=== PATIENT | male | born 1975 | race Hispanic/Latino ===

== ENCOUNTER 2020-06-06 17:36 | Emergency (ER) | payer SELFPAY ==
[2020-06-06 17:37] VITALS: BP 128/76; PULSE 97; PULSE 98; RESP 18; TEMP 35.6; O2SAT 98; BMI 27.8
--- NOTE | 2020-06-06 17:51 | CT_ITS ---
STUDY: CT ABDOMEN AND PELVIS WITHOUT CONTRAST REASON FOR EXAM: Male, 44 years old. RIGHT FLANK PAIN AND HEMATURIA RADIATION DOSAGE (If Supplied By Facility): CTDIvol = ( 8.16 ) mGy, DLP = ( 450.57 ) mGycm TECHNIQUE: Transaxial images were obtained from the dome of the diaphragm to the symphysis pubis without oral contrast, and without intravenous contrast. Sagittal and coronal images were reconstructed. Individualized dose optimization techniques were used for this CT. COMPARISON: None. FINDINGS: The visualized lung bases are unremarkable. The visualized portions of the heart are within normal limits. Normal liver. Normal gallbladder and extrahepatic biliary system. Normal spleen. Normal pancreas. Normal bilateral adrenal glands. Normal right kidney. Left kidney has 3 or 4 very tiny nonobstructing upper and mid renal stones. Otherwise normal left kidney. Normal visualized stomach. Normal small intestine. Normal caliber large bowel. Moderate to marked diffuse fecal retention. Abnormal appearance of the sigmoid where there appears to be thickened bowel wall thickening and numerous diverticuli with probable mild perisigmoid stranding. The finding suggests low level acute diverticulitis. However there may be several slightly prominent perisigmoid enlarged lymph nodes and further evaluation with colonoscopy recommended to exclude more significant etiologies. The appendix is visualized and appears normal. Normal abdominal aorta. Normal inferior vena cava. Normal retroperitoneum. Normal urinary bladder. Normal abdominal wall. Degenerative disc disease at L5-S1, otherwise normal osseous structures. CT/Abdomen/Pelvis without Cont IMPRESSION: Nonobstructing left renal stones. Abnormal appearance of the sigmoid. Probable low-grade acute diverticulitis but cannot exclude more significant etiologies including neoplasm. Colonoscopy recommended. Electronically Signed: Dean Serrano MD at 18:54 EST , Service support ,
--- NOTE | 2020-06-06 17:52 | ED.VIS.GEN ---
History of Present Illness Chief Complaint: Flank Pain Informant: Patient Onset: Weeks - 1 week Context: Gradual Onset Timing: Waxes and wanes Current Severity: Moderate Maximum Severity: Moderate Narrative: Patient presents with 1 week history of waxing and waning flank pain. Right is worse than left. He was seen at urgent care and did have hematuria noted and was sent to the ER for further evaluation. Patient denies any history of kidney stones. - Past Medical History (1) Diverticulitis Status: Resolved Past Medical History - Allergies and Home Meds Allergies/Adverse Reactions: Allergies No Known Allergies Allergy (Verified 06/06/20 17:40) Primary Care Physician: Care Physician,No Primary [Primary Care Provider] - Prior records reviewed: Yes Surgical History: no surgical history Review of Systems General: Denies: Chills, Fever Eyes: Denies: Visual changes - bilaterally ENT: Denies: Bilateral ear pain Cardiovascular: Denies: Chest pain Respiratory: Denies: Dyspnea, Cough Gastrointestinal: Reports: Abdominal pain. Denies: Vomiting, Diarrhea Genitourinary: Denies: Dysuria Musculoskeletal: Reports: Back pain. Denies: Swelling, Extremity Pain Skin: Denies: Rash Neurological: Denies: Headache Hematologic: Denies: Easy bruising, Easy bleeding Allergy: Denies: Uticaria Physical Exam Vital Signs/Narrative: Vital Signs Temp Pulse Resp BP Pulse Ox 06/06/20 17:37 96.0 F L 98 18 128/76 H 98 Inital Vital Signs reviewed: Yes General: Well nourished, Well developed Head: Normocephalic ENT: Moist mucous membranes Neck: Supple Cardiovascular: Regular rate, Regular rhythm Respiratory: No distress, CTA bilaterally Abdomen: Soft, Nontender, Hypoactive bowel sounds Back: CVA tenderness - Right CVA tenderness Skin: Normal color Neurological: Alert, Oriented x3 Psychological: Normal affect Diagnostic/Tx/Re-eval Impressions Abdomen/Pelvis CT 06/06/20 17:51 IMPRESSION: Nonobstructing left renal stones. Abnormal appearance of the sigmoid. Probable low-grade acute diverticulitis but cannot exclude more significant etiologies including neoplasm. Colonoscopy recommended. Electronically Signed: Dean Serrano MD at 18:54 EST , Service support , 06/06/20 17:51 Abdomen/Pelvis without Cont [CT] Stat Laboratory Results 06/06/20 06/06/20 06/06/20 18:00 18:00 19:46 WBC 8.6 RBC 5.23 Hgb 15.6 Hct 48.6 MCV 92.9 MCH 29.8 MCHC 32.1 RDW Std Deviation 44.4 H RDW Coeff of [place]ha 13.1 Plt Count 298 MPV 10.5 Immature Gran % (Auto) 0.300 Neut % (Auto) 60.2 Lymph % (Auto) 27.7 [place] % (Auto) 9.3 Eos % (Auto) 2.2 Baso % (Auto) 0.3 Absolute Neuts (auto) 5.2 Absolute Lymphs (auto) 2.38 Nucleated RBC % 0 Sodium 140 Potassium 4.3 Chloride 108 H Carbon Dioxide 29.0 Anion Gap 3 L BUN 16 Creatinine 1.31 H Estim Creat Clear Calc 78.24 Est GFR (MDRD) Af Amer 77 Est GFR (MDRD) Non-Af 64 BUN/Creatinine Ratio 12.2 Glucose 109 H Calcium 8.7 Urine Color Yellow Urine Clarity Clear Urine pH 6.0 Ur Specific [place] 1.020 Urine Protein Negative Urine Glucose (UA) Normal Urine Ketones Negative Urine Occult Blood 50 H Urine Nitrite Negative Urine Bilirubin Negative Urine Urobilinogen Normal Ur Leukocyte Esterase 25 H Urine RBC 0-5 SEEN Urine WBC 0-5 SEEN Ur Squamous Epith Cells 0 SEEN Urine Bacteria 0 SEEN Urine Mucus 0 SEEN - Medical Decision Making Patient was given morphine, Toradol, Zofran, and IV fluids here. Blood work is largely unremarkable. Urinalysis shows 0-5 reds and 0-5 white cells. No significant bacteria. CT scan of the flank reveals left renal stones. No evidence of stone in the ureter. Sigmoid colon looks mildly inflamed which may be consistent with mild diverticulitis. We will treat him with Augmentin for this. He was advised that he needs to follow-up with a surgeon for possible colonoscopy to ensure that this is completely resolved and there is no abnormalities noted in the bowel. He voices understanding and agreement. Prescription for Augmentin will be sent to the pharmacy for him. ED Disposition - Plan for ED Patient: Disposition: Home or Assisted Living Diagnosis: Diverticulitis Instructions: ED Diverticulitis Prescriptions: Amox/Clavulanate Tablet [Augmentin Tablet] 875 mg PO Q12H #20 tab Transmission Status: Pending to [facility] Referrals: Aristeo Sommers MD [STAFF PHYSICIAN] - 1-2 Weeks
[2020-06-06] MEDS: 0.9% Normal Saline 1,000 ML 1000 ML IV (18:08)
[2020-06-06] MEDS: Ketorolac 30 MG/ML Syringe IV (18:08)
[2020-06-06] MEDS: Ondansetron 4 MG/2 ML Vial IV (18:08)
[2020-06-06] MEDS: Morphine 4 MG/ML Syringe IV (18:08)
[2020-06-06 18:10] LABS: Absolute Lymphocyte Count 2.38 X10^3/uL (0.83-4.51); Absolute Neutrophil Count 5.2 X10^3/uL (2.0-7.7); Basophil# 0.03 X10^3/uL; Basophil% 0.3 % (0-1); Eosinophil# 0.19 X10^3/uL; Eosinophils% 2.2 % (0-5); Hematocrit 48.6 % (40-54); Hemoglobin 15.6 g/dL (13.0-16.5); Lymphocyte # 2.38 X10^3/ul (4.0); Lymphocyte % 27.7 % (19-41); Mean Corp Hgb Conc 32.1 g/dL (32-36); Mean Corpuscular Hgb 29.8 pg (27.0-32.0); Mean Corpuscular Volume 92.9 fL (80-94); Mean Platelet Vol. 10.5 fl (6.2-12.0); Monocyte% 9.3 % (0-10); NRBC Flagged by Analyzer 0 % (0-5); Neutrophil # 5.17 X10^3/uL (2.7-7.7); Neutrophil % 60.2 % (47-70); Platelet Count 298 K/mm3 (150-450); RBC Distribution Width CV 13.1 % (11.6-14.6); RBC Distribution Width SD 44.4 fl (35.1-43.9); Red Blood Count 5.23 M/mm3 (4.6-6.2); White Blood Count 8.6 K/mm3 (4.4-11.0)
[2020-06-06 18:22] LABS: Anion Gap 3 (5-15); BUN 16 mg/dL (7-18); BUN/Creat Ratio 12.2 RATIO (10-20); Calcium,Total 8.7 mg/dL (8.5-10.1); Chloride 108 mmol/L (98-107); Creatinine, Serum 1.31 mg/dL (0.70-1.30); EST Glomerular Filtration Rate 64 mL/min (>60); Est Glom Filt Rate - Afr Amer 77 mL/min (>60); Estimated Creatinine Clearance 78.24 ml/min; Glucose 109 mg/dL (74-106); Potassium 4.3 mmol/L (3.5-5.1); Sodium Level 140 mmol/L (136-145)
[2020-06-06 19:51] LABS: Bacteria 0 SEEN /hpf (None Seen); Mucous, Urine 0 SEEN /hpf (<or=2+); Squamous Epithelial Cells - UA 0 SEEN /hpf (0-5)
[2020-06-06 19:57] LABS: Color, Urine Yellow (Yellow); Glucose, Dipstick Normal (Normal); Ketone-Dipstick Negative (Negative); Leukocyte Esterase-Dipstick 25 /ul (Negative); Nitrite-Dipstick Negative (Negative); Occult Blood-Urine 50 /ul (Negative); Protein-Dipstick Negative (Negative); Urine Bilirubin Dipstick Negative (Negative); Urine Clarity Clear (Clear); Urine Urobilinogen Normal (Normal)
[2020-06-06 20:04] LABS: Red Blood Cells-Urine 0-5 SEEN /hpf (0-5); White Blood Cells 0-5 SEEN /hpf (0-5)
[2020-06-06 21:07] VITALS: BP 141/76; PULSE 91; RESP 16; O2SAT 98
== END 2020-06-06 21:09 | disposition home or self-care (01) ==
PROVIDERS: Emergency Provider Emergency Medicine
DX: K57.92 Diverticulitis of intestine, part unspecified, without perforation or abscess without bleeding (principal); N20.0 Calculus of kidney
CPT/HCPCS: 74176; 80048; 81001; 85025; 96360; 96361; 99283; J7030; A4216; J2405

== ENCOUNTER 2023-04-25 17:01 | Emergency (ER) | payer OTHER, MEDICAID, SELFPAY ==
[2023-04-25 17:02] VITALS: BP 139/110; PULSE 98; RESP 20; TEMP 37.2; O2SAT 99; BMI 30.7
[2023-04-25 17:16] VITALS: BP 136/110; PULSE 99; RESP 21; O2SAT 98; O2SAT 99
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
--- NOTE | 2023-04-25 17:38 | RAD_ITS ---
INDICATION: Injury/Pain EXAMINATION/TECHNIQUE: X-RAY - RIGHT XR Tibia/Fibula 2 Views COMPARISON: None. FINDINGS: No acute fracture or malalignment. RAD/Tibia & Fibula 2 Views IMPRESSION: No acute radiographic abnormalities. Electronically Signed: Augusto Neal MD at 18:39 EST ,
--- NOTE | 2023-04-25 17:38 | CT_ITS ---
STUDY: CT CERVICAL SPINE WITHOUT CONTRAST REASON FOR EXAM: Male, 47 years old. Injury/Pain RADIATION DOSAGE (If Supplied By Facility): CTDIvol = ( 26.91 ) mGy, DLP = ( 586.40 ) mGycm TECHNIQUE: High resolution transaxial imaging was performed without contrast material. Sagittal and coronal images were reconstructed. Individualized dose optimization techniques were used for this CT. COMPARISON: None FINDINGS: Normal craniovertebral junction. Normal anterior atlantoaxial articulation. Normal odontoid process. Normal cervical lordosis. Normal vertebral bodies and posterior osseous elements. C2-3: Normal endplates. Normal disc height and morphology. Normal central canal and intervertebral neuroforamina. C3-4: Normal endplates. Normal disc height and morphology. Normal central canal and intervertebral neuroforamina. C4-5: Normal endplates. Normal disc height and morphology. Normal central canal and intervertebral neuroforamina. C5-6: Normal endplates. Disc space narrowing with broad-based central disc bulge. No central canal narrowing, there is bilateral foraminal narrowing due to facet joint hypertrophy C6-7: Normal endplates. Disc space narrowing. Normal central canal and intervertebral neuroforamina. C7-T1: Normal endplates. Disc space narrowing. Normal central canal and intervertebral neuroforamina. Normal visualized soft tissue structures. CT/Spine Cervical without Contras IMPRESSION: Degenerative changes in the lower cervical spine, no demonstrated fracture or suspicious osseous lesion Electronically Signed: Riaz Hooks MD at 18:14 EST ,
--- NOTE | 2023-04-25 17:38 | RAD_ITS ---
INDICATION: Injury/Pain EXAMINATION/TECHNIQUE: X-RAY - LEFT XR Elbow Min 3 Views COMPARISON: No relevant prior comparison study available FINDINGS: SOFT TISSUES: No soft tissue swelling or gas. No radiopaque foreign body. BONES/JOINTS: There is no displacement of the anterior or posterior fat pads. No acute fracture or subluxation. Normal alignment. Preservation of the joint space. No sclerotic or destructive changes observed. RAD/Elbow min 3 Views IMPRESSION: Negative. Electronically Signed: Augusto Neal MD at 18:40 EST ,
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
--- NOTE | 2023-04-25 17:42 | RAD_ITS ---
INDICATION: Injury/pain EXAMINATION/TECHNIQUE: X-RAY - RIGHT XR Elbow Min 3 Views COMPARISON: No relevant prior comparison study available FINDINGS: SOFT TISSUES: No soft tissue swelling or gas. No radiopaque foreign body. BONES/JOINTS: There is no displacement of the anterior or posterior fat pads. No acute fracture or subluxation. Normal alignment. Preservation of the joint space. No sclerotic or destructive changes observed. RAD/Elbow min 3 Views IMPRESSION: Negative. Electronically Signed: Augusto Neal MD at 18:39 EST ,
[2023-04-25] MEDS: Ondansetron 4 MG/2 ML Vial IV (17:47)
[2023-04-25] MEDS: Morphine 4 MG/ML Syringe IV (17:47)
--- OUTSIDE RECORDS SUMMARY | 2023-04-25 17:57 | XMS RPT_ITS | CCD ---
Author Name Unknown Address [address] [place] [address] Organization [facility] Care Team Providers Care Business Support Specialist Name Role Phone Unavailable Primary Care Provider Unavailangelito Leon MD, Enrique Alcala Unavailable PHYSICIAN, NONE Primary Care Physician Unavailab JENNIFER Celeste DO Primary Care Physician PHYSICIAN, NONE Primary Care Unavailable SHAUN ALDRIDGE, DR BJ Yan Admitting SARANYA Ly DO Attending Unavailable JENN ALDRIDGE, YU Alcala Consulting Unavailable LISA ALDRIDGE, GIO Consulting Unavailable HARDEEP ALFARO MD Consulting Unavailable CARMEN ALDRIDGE, DR HSIEH Consulting Unavailable SHAHBAZ ALDRIDGE, REJI Consulting Unavailakbar MCKEON MD, LIDIA Salter Consulting Unavailable IRVIN VALLE DO Attending Unavailable JENNIFER ANTONY DO Primary Care Unavailable PHYSICIAN, NONE Primary Care Unavailable KANCHAN SAWYER MD Attending Unavail able ED MG, DR SUSU Rueda Attending Unavailable JENNIFER ANTONY DO Primary Care Unavailable JENNIFER ANTONY DO Attending Unavailable JENNIFER ANTONY DO Primary Care Unavailable JENNIFER ANTONY DO Attending Unavailable JENNIFER ANTONY DO Primary Care Unavailable KANCHAN SAWYER MD Attending Unavail able JENNIFER ANTONY DO Primary Care Unavailable CARMEN ALDRIDGE, DR HSIEH Attending Unavailable PHYSICIAN, NONE Primary Care Unavailable JENNIFER ANTONY DO Attending Unavailable JENNIFER ANTONY DO Primary Care Unavailable Medications Current Medications Medication Drug Class(es) Dates Sig (Normalized) Sig (Original) 8 hr acetaminophen 650 mg extended release oral tablet (4 sources) Start: 11-11-2022 Tylenol 8 Hour 650 mg oral tablet, extended release Dose : 650 mg = 1 tab(s), Oral, TID, Generic acetaminophen 500-650mg dosing are fine to use. Do not take with alcohol within 24 hour period., # 100 tab(s), 0 Refill(s), Pharmacy: [id number], Costochondritis Current use of intermediate frame tender Eliquis, DVT prophylaxis, 180, cm, 11/11/22 17:35:00 EDT, Height, kg, 11/11/22 17:35:00 EDT, Dosing Weight Start Date: 11/11/22 Status: Ordered Completed/Discontinued Medications Medication Drug Class(es) Dates Sig (Normalized) Sig (Original) escitalopram 20 mg oral tablet (2 sources) Serotonin Reuptake Inhibitor take 1 tablet by mouth at bedtime LEXAPRO 20 MG TABS 1 tablet by mouth at bedtime escitalopram oxalate [id number] Flor Pavick AT predniSONE 10 mg oral tablet (2 sources) Start: 11-11-2022 End: 11-25-2022 take 0.5 tablet by mouth once daily prednisone 10mg tab (TAPER) Taper 60-40-20-10 mg x 3 days then 5mg x 2 days, Oral, Daily, Take 6 tabs daily x 3days, then 4 tabs daily x 3days, then 2 tabs daily x 3days,then 1 tab daily x 3days,then 1/2 tab daily x 2 days, # 40 tab(s), 0 Refill(s), Pharmacy: [facility] #[id number], Costochondritis Current use of intermediate frame tender Eliquis, DVT prophylaxis, 180, cm, 11/11/22 17:35:00 EDT, Height, kg, 11/11/22 17:35:00 EDT, Dosing Weight Start Date: 11/11/22 Stop Date: 11/25/22 Status: Ordered Problems Active Problems Problem Classification Problem Date Documented Da te Episodic/Chronic Abdominal pain (1 source) Flank pain; Translations: [Flank pain, acute] Episodic Cardiac dysrhythmias (3 sources) Tachycardia 09-02-2022 Episodic Deficiency and other anemia (1 source) Anemia; Translations: [Anemia, unspecified] Onset: 03-22-2022 Episodic Deficiency and other anemia (2 sources) Microcytic anemia 12-25-2022 Episodic Fracture of neck of femur (hip) (2 sources) Open fracture proximal femur, subtrochanteric; Translations: [Displaced subtrochanteric fracture of right femur, subsequent encounter for open fracture type IIIA, IIIB, or IIIC with routine healing] Onset: 05-11-2021 05-11-2021 Episodic Genitourinary symptoms and ill-defined conditions (2 sources) Increased frequency of urination; Translations: [Amarjit hematuria] Episodic Nonspecific chest pain (5 sources) Chest discomfort; Translations: [Chest pain] Onset: 11-08-2022 05-31-2022 Episodic Nutritional deficiencies (1 source) Iron deficiency; Translations: [Iron deficiency] Onset: 03-22-2022 Episodic Other aftercare (3 sources) Long-term current use of anticoagulant 05-31-2022 Episodic Other bone disease and musculoskeletal deformities (2 sources) Costal chondritis 11-13-2022 Episodic Other bone disease and musculoskeletal deformities (1 source) Tietze's disease; Translations: [Chondrocostal junction syndrome [Tietze]] Onset: 02-21-2023 Episodic Other connective tissue disease (2 sources) Lateral epicondylitis 12-25-2022 Episodic Other lower respiratory disease (1 source) Dyspnea; Translations: [Dyspnea, unspecified] Onset: 11-08-2022 Episodic Other lower respiratory disease (3 sources) Snoring 10-07-2022 Episodic Other nervous system disorders (4 sources) Paresthesia of upper limb 05-31-2022 Episodic Other nervous system disorders (3 sources) Paresthesia 09-02-2022 Episodic Phlebitis; thrombophlebitis and thromboembolism (8 sources) Deep venous thrombosis; Translations: [Acute embolism and thrombosis of unspecified deep veins of unspecified lower extremity] Onset: 03-22-2022 Episodic Pleurisy; pneumothorax; pulmonary collapse (5 sources) Pleural effusion 04-13-2022 Episodic Pulmonary heart disease (6 sources) Other pulmonary embolism without acute cor pulmonale; Translations: [H/O: pulmonary embolus] Onset: 03-22-2022 Episodic Residual codes; unclassified (3 sources) Hypersomnia 10-07-2022 Chronic Residual codes; unclassified (3 sources) Clubbing of nail 10-07-2022 Episodic Screening and history of mental health and substance abuse codes (3 sources) Ex-tobacco user 09-02-2022 Episodic Syncope (3 sources) Near syncope 09-02-2022 Episodic Thyroid disorders (3 sources) Non-toxic uninodular goiter; Translations: [Nontoxic single thyroid nodule] Onset: 11-08-2022 Chronic Unclassified (1 source) Patient encounter status 04-13-2022 Past or Other Problems Problem Classification Problem Date Documented Da te Episodic/Chronic Unclassified (2 sources) Problem Results Test Name Value Interpretation Reference Range Facil ity Vital Signs Date Time Vital Sign Value Performing Clinician Facility 02-21-2023 18:45-0500 Diastolic Blood Pressure Non-Invasive 85 1 IRVIN [email or web address] DO [facility] 02-21-2023 18:45-0500 Heart rate 71 /min IRVIN EspressiT kooaba [facility] 02-21-2023 18:45-0500 Respiratory rate 21 /min IRVIN EspressiT kooaba [facility] 02-21-2023 18:45-0500 Systolic Blood Pressure Non-Invasive 135 1 IRVIN [email or web address] DO [facility] 02-21-2023 18:18-0500 Diastolic Blood Pressure Non-Invasive 85 1 IRVIN EspressiT kooaba [facility] 02-21-2023 18:18-0500 Heart rate 70 /min IRVIN EspressiT DO [facility] 02-21-2023 18:18-0500 Systolic Blood Pressure Non-Invasive 119 1 IRVIN [email or web address] DO [facility] 02-21-2023 17:26-0500 Diastolic Blood Pressure Non-Invasive 91 1 IRVIN EspressiT DO [facility] 02-21-2023 17:26-0500 Heart rate 80 /min IRVIN EspressiT kooaba [facility] 02-21-2023 17:26-0500 Respiratory rate 19 /min IRVIN EspressiT kooaba [facility] 02-21-2023 17:26-0500 Systolic Blood Pressure Non-Invasive 125 1 IRVIN VALLE DO [facility] 02-21-2023 16:10-0500 Respiratory rate 19 /min IRVIN VALLE DO [facility] 02-21-2023 15:34-0500 Body temperature 98.6 [degF] IRVIN VALLE DO [facility] 02-21-2023 15:34-0500 Body weight 93.7 kg IRVIN VALLE DO [facility] 11-08-2022 03:33-0400 Diastolic Blood Pressure Non-Invasive 68 1 KANCHAN SAWYER MD [facility] 11-08-2022 03:33-0400 Heart rate 72 /min KANCHAN SAWYER MD [facility] 11-08-2022 03:33-0400 Respiratory rate 18 /min KANCHAN SAWYER MD [facility] 11-08-2022 03:33-0400 Systolic Blood Pressure Non-Invasive 132 1 KANCHAN SAWYER MD [facility] 11-08-2022 01:50-0400 Diastolic Blood Pressure Non-Invasive 85 1 KANCHAN SAWYER MD [facility] 11-08-2022 01:50-0400 Heart rate 86 /min KANCHAN SAWYER MD [facility] 11-08-2022 01:50-0400 Respiratory rate 18 /min KANCHAN SAWYER MD [facility] 11-08-2022 01:50-0400 Systolic Blood Pressure Non-Invasive 129 1 KANCHAN SAWYER MD [facility] 05-31-2022 17:06-0500 Diastolic Blood Pressure Non-Invasive [address] SUSU WARD DO [facility] 05-31-2022 17:06-0500 Heart rate 99 /min DR SUSU WARD DO [facility] 05-31-2022 17:06-0500 Respiratory rate 18 /min DR SUSU WARD DO [facility] 05-31-2022 17:06-0500 Systolic Blood Pressure Non-Invasive [address] SUSU AWRD DO [facility] 05-31-2022 14:24-0500 Body temperature 97.7 [degF] DR SUSU WARD DO [facility] 05-31-2022 14:24-0500 Body weight 90.[address] SUSU WARD DO [facility] 05-31-2022 14:24-0500 Diastolic Blood Pressure Non-Invasive [address] SUSU WARD DO [facility] 05-31-2022 14:24-0500 Heart rate 101 /min DR SUSU WARD DO [facility] 05-31-2022 14:24-0500 Respiratory rate 18 /min DR SUSU WARD DO [facility] 05-31-2022 14:24-0500 Systolic Blood Pressure Non-Invasive [address] SUSU WARD DO [facility] 04-04-2022 13:19-0500 Body height 180.3 cm KANCHAN SAWYER MD [facility] 04-04-2022 13:19-0500 Body temperature 98.06 [degF] KANCHAN SAWYER MD [facility] 04-04-2022 13:19-0500 Body weight 90.9 kg KANCHAN SAWYER MD [facility] 04-04-2022 13:19-0500 Diastolic Blood Pressure Non-Invasive 87 1 KANCHAN SAWYER MD [facility] 04-04-2022 13:19-0500 Heart rate 108 /min KANCHAN SAWYER MD [facility] 04-04-2022 13:19-0500 Respiratory rate 24 /min KANCHAN SAWYER MD [facility] 04-04-2022 13:19-0500 Systolic Blood Pressure Non-Invasive 136 1 KANCHAN SAWYER MD [facility] 03-22-2022 21:32-0500 Heart rate 97 /min DR BJ DUNN MD [facility] 03-22-2022 20:43-0500 Body temperature 98.6 [degF] DR BJ DUNN MD [facility] 03-22-2022 20:43-0500 Diastolic Blood Pressure Non-Invasive [address] BJ DUNN MD [facility] 03-22-2022 20:43-0500 Heart rate 97 /min DR BJ DUNN MD [facility] 03-22-2022 20:43-0500 Mean blood pressure 93 mm[Hg] DR BJ DUNN MD [address] [place] [address] 03-22-2022 20:43-0500 Reason For Taking VItal Signs DR BJ DUNN MD [address] [place] [address] 03-22-2022 20:43-0500 Respiratory rate 18 /min DR BJ DUNN MD [address] [place] [address] 03-22-2022 20:43-0500 Systolic Blood Pressure Non-Invasive [address] BJ DUNN MD [address] [place] [address] 03-22-2022 15:40-0500 Body temperature 99.14 [degF] DR BJ DUNN MD [address] [place] [address] 03-22-2022 15:40-0500 Diastolic Blood Pressure Non-Invasive [address] BJ DUNN MD [address] [place] [address] 03-22-2022 15:40-0500 Heart rate 97 /min DR BJ DUNN MD [address] 03-22-2022 15:40-0500 Mean blood pressure 95 mm[Hg] DR BJ DUNN MD [address] 03-22-2022 15:40-0500 Reason For Taking VItal Signs DR BJ DUNN MD [address] [place] [address] 03-22-2022 15:40-0500 Respiratory rate 18 /min DR BJ DUNN MD [address] [place] [address] 03-22-2022 15:40-0500 Systolic Blood Pressure Non-Invasive [address] BJ DUNN MD [address] [place] [address] 03-22-2022 15:35-0500 Reason For Taking VItal Signs DR BJ DUNN MD [address] [place] [address] 03-22-2022 14:00-0500 Body temperature 99.32 [degF] DR BJ DUNN MD [address] [place] [address] 03-22-2022 14:00-0500 Diastolic Blood Pressure Non-Invasive [address] BJ DUNN MD [address] [place] [address] 03-22-2022 14:00-0500 Mean blood pressure 98 mm[Hg] DR BJ DUNN MD [address] [place] [address] 03-21-2022 12:47-[address] BJ DUNN MD [address] [place] [address] 03-21-2022 12:47-[address] BJ DUNN MD [address] [place] [address] 03-21-2022 07:56-05[address] Cuff Size DR BJ DUNN MD [address] [place] [address] 03-20-2022 23:34-0500 Heart rate 98 /min DR BJ DUNN MD [address] [place] [address] 03-20-2022 20:12-0500 Heart rate 98 /min DR BJ DUNN MD [address] [place] [address] 03-20-2022 16:14-0500 Heart rate 100 /min DR BJ DUNN MD [address] [place] [address] 03-19-2022 21:37-0500 Body height 175.[address] BJ DUNN MD [address] [place] [address] 03-19-2022 21:37-0500 Body weight 91.[address] BJ DUNN MD [address] [place] [address] 03-19-2022 21:37-0500 Body weight 29.78 kg/m2 DR BJ DUNN MD [address] [place] [address] 03-19-2022 10:01-0500 Heart rate 130 /min DR BJ DUNN MD [facility] 03-19-2022 09:41-0500 Body weight 91.[address] BJ DUNN MD [facility] 03-19-2022 09:41-0500 Heart rate 130 /min DR BJ DUNN MD [facility] 06-06-2020 16:21-0500 Body Temperature 97.39 [degF] [facility] 06-06-2020 16:21-0500 Body weight 91.08 kg [facility] 06-06-2020 16:21-0500 BP Diastolic 72 mm[Hg] [facility] 06-06-2020 16:21-0500 BP Systolic 110 mm[Hg] [facility] 06-06-2020 16:21-0500 Pulse (Heart Rate) 94 /min [facility] 06-06-2020 16:21-0500 Pulse Oximetry 97 % [facility] 06-06-2020 16:21-0500 Respiratory Rate 18 /min [facility] NEGATED: Highlighted [id number] 13:13-0400 Body height 179.07 cm Flor Pavick AT [facility] Work Phone: NEGATED: Highlighted [id number] 13:13-0400 Body height 179 cm Flor Pavick AT [facility] Work Phone: NEGATED: Highlighted [id number] 13:13-0400 Body mass index (BMI) [Ratio] 28.11 kg/m2 Flor Pavick AT [facility] Work Phone: NEGATED: Highlighted [id number] 13:13-040 Body weight 89.81 kg Flor Pavick AT [facility] Work Phone: NEGATED: Highlighted [id number] 13:13-040 Body weight 90 kg Flor Pavick AT [facility] Work Phone: NEGATED: Highlighted [id number] 13:56-0500 Body height 179.07 cm Karla Garcia LPN [facility] Work Phone: NEGATED: Highlighted [id number] 13:56-0500 Body height 179 cm Karla Garcia LPN [facility] Work Phone: NEGATED: Highlighted [id number] 13:56-0500 Body mass index (BMI) [Ratio] 28.68 kg/m2 Karla Garcia LPN [facility] Work Phone: NEGATED: Highlighted [id number] 13:56-0500 Body temperature 97.8 [degF] Karla Garcia LPN [facility] Work Phone: NEGATED: Highlighted [id number] 13:56-0500 Body temperature 97.88 [degF] Karla Garcia LPN [facility] Work Phone: NEGATED: Highlighted [id number] 13:56-0500 Body weight 91.63 kg Karla Garcia LPN [facility] Work Phone: NEGATED: Highlighted [id number] 13:56-0500 Body weight 92 kg Karla Garcia LPN [facility] Work Phone: Encounters Encounter Date Encounter Type Care Provider Facility Start: 02-21-2023 End: 02-21-2023 Emergency department patient visit IRVIN VALLE DO Facility:B Start: 02-21-2023 End: 02-21-2023 Emergency department patient visit IRVIN VALLE DO [facility] Start: 12-25-2022 End: 12-26-2022 ambulatory JENNIFER ANTONY DO Facility:[facility] Start: 12-25-2022 End: 12-25-2022 Patient encounter procedure JENNIFER ANTONY DO [facility] Start: 12-02-2022 End: 12-03-2022 ambulatory JENNIFER ANTONY DO Facility:A Start: 11-14-2022 End: 11-15-2022 ambulatory JENNIFER ANTONY DO Facility:[facility] Start: 11-08-2022 End: 11-08-2022 Emergency department patient visit KANCHAN SAWYER MD Facility:[facility] Start: 11-08-2022 End: 11-08-2022 Emergency department patient visit KANCHAN SAWYER MD [facility] Start: 05-31-2022 End: 05-31-2022 Emergency department patient visit DR SUSU WARD DO Facility:B Start: 05-31-2022 End: 05-31-2022 Emergency department patient visit DR SUSU WARD DO [facility] Start: 05-13-2022 End: 05-14-[address] МАРИЯ MARINELLI MD Facility:A Start: 05-13-2022 End: 05-13-[address] МАРИЯ MARINELLI MD [facility] Start: 04-04-2022 End: 04-04-2022 Emergency department patient visit NONE PHYSICIAN Facility:B Start: 04-04-2022 End: 04-04-2022 Emergency department patient visit KANCHAN SAWYER MD [facility] Start: 03-19-2022 End: 03-23-2022 Evaluation and management of inpatient NONE PHYSICIAN Facility:A Start: 03-19-2022 End: 03-22-2022 Evaluation and management of inpatient DR BJ DUNN MD [facility] Start: 06-06-2020 End: 06-06-2020 Patient encounter procedure Enrique CharlesRahJuliann Work Phone: [facility] Procedures Date Procedure Procedure Detail Performing Clinician Start: 07-20-2021 End: 07-20-2021 BP scrn no perf at interval Enrique Leon MD Work Phone: Start: 07-20-2021 End: 07-20-2021 Calc BMI abv up cindy f/u Enrique Leon MD Work Phone: Start: 07-20-2021 End: 07-20-2021 Current tobacco non-user cad cap copd pv dm Enrique Leon MD Work Phone: Start: 07-20-2021 End: 07-20-2021 Docrev cur meds by lillian Leon MD Work Phone: Start: 07-20-2021 End: 07-20-2021 Pain neg no plan Enrique Leon MD Work Phone: Start: 07-20-2021 End: 07-20-2021 Patient encounter procedure Enrique Leon MD Work Phone: Start: 07-20-2021 End: 07-20-2021 Radiologic examination femur minimum 2 views Enrique Leon MD Work Phone: Start: 06-08-2021 End: 06-08-2021 BP scrn no perf at interval Enrique Leon MD Work Phone: Start: 06-08-2021 End: 06-08-2021 Calc BMI abv up cindy f/u Enrique Leon MD Work Phone: Start: 06-08-2021 End: 06-08-2021 Current tobacco non-user cad cap copd pv dm Enrique Leon MD Work Phone: Start: 06-08-2021 End: 06-08-2021 Docrev cur meds by lillian Leon MD Work Phone: Start: 06-08-2021 End: 06-08-2021 Pain doc pos and plan Enrique Leon MD Work Phone: Start: 06-08-2021 End: 06-08-2021 Patient encounter procedure Enrique Leon MD Work Phone: Start: 06-08-2021 End: 06-08-2021 Radiologic examination femur minimum 2 views Enrique Leon MD Work Phone: Start: 06-06-2020 Urnls dip stick/tabl et rgnt auto w/o microscopy [facility]: Fracture of lower li mb (disorder) DR BJ DUNN MD None (qualifier value) DR AMANDEEP DUNN MD NEGATED: Highlighted rowStart: 07-20-2021 End: 07-20-2021 Documentation of current medications Flor Eli AT NEGATED: Highlighted rowStart: 06-08-2021 End: 06-08-2021 Documentation of current medications Karla Garcia LPN Plan of Treatment Date Care Activity Detail Author Start: 07-20-2021 End: 07-20-2021 Patient encounter procedure Appointment [facility] Work Phone: Start: 06-08-2021 End: 06-08-2021 Patient encounter procedure Appointment [facility] Work Phone: Start: 12-14-2019 Influenza vaccination INFLUENZA (#1) [facility] Start: 2012 LIPID SCREEN LIPID SCREEN [facility] Start: 1996 Urine microalbumin profile DTAP,TDAP,TD (1 - Tdap) [facility] Start: 08-09-1995 HEPATITIS C SCREENING HEPATITIS C SCREENING [facility] Start: 08-09-1995 HIV SCREENING HIV SCREENING [facility] Start: 1989 Adult depression screening assessment DEPRESSION SCREENING [facility] Bacteria identified Cx Nom (U) URINE CULTURE Microbiology Routine Urinary frequency Ordered: 06/06/2020 [facility] Immunizations Immunization Date Immunization Notes Care Provider Iman dawn 05-25-2018 tetanus toxoid, redu kaia diphtheria toxoid, and acellular pertussis vaccine, adsorbed; Translations: [Boostrix (Tdap)] DR BJ DUNN MD [facility] Payers Date Payer Category Payer Private Health Insurance [id number] 2022 Unknown [id number] 2022 Unknown [id number] 1977 Unknown [id number] 2.16.8 [id number] 1977 Unknown [id number] 2.16.8 [id number] 1977 Unknown [id number] 2.16.8 [id number] 1977 Unknown [id number] 2.16.8 [id number] 1977 Unknown [id number] 2.16.8 [id number] 1977 Unknown [id number] 2.16.8 [id number] 1977 Unknown [id number] 2.16.8 [id number] 1977 Unknown [id number] 2.16.8 [id number] 1977 Unknown [id number] 2.16.8 [id number] Social History Date Type Detail Facility Start: 06-06-2020 Tobacco smoking status NHIS Current every day smoker [facility] Start: 06-06-2020 Tobacco use and exposure Never used [facility] Start: 1975 [facility] to SARS-CoV-2 (event) Not sure [facility] Start: 07-20-2021 End: 07-20-2021 Assertion Unknown if ever smoked [facility] Work Phone: Start: 04-22-2018 Tobacco smoking status Light tobacco smoker (finding) [facility] Sex Assigned At Sex [facility] Start: 05-31-2022 Tobacco smoking status Ex-smoker (finding) [facility] NEGATED: Highlighted rowStart: 06-08-2021 End: 06-08-2021 Assertion Former smoker [facility] Work Phone: NEGATED: Highlighted rowStart: 07-20-2021 End: 07-20-2021 Employment detail Employment detail [facility] Work Phone: Functional Status Date Assessment Result Facility 02-21-2023 Functional Status Independent [facility] 02-21-2023 Functional Status Ambulation in [facility] 11-08-2022 Functional Status Assistive Device None [facility] 05-31-2022 Functional Status Independent [facility] 05-31-2022 Functional Status ID band on, Call device within reach, Bed in low position, Wheels locked, Upper/Half-Length side-rails up [facility] 04-04-2022 Functional Status Independent [facility] 04-04-2022 Functional Status Resting [facility] 03-22-2022 Functional Status Room check performed [facility] 03-22-2022 Functional Status 100 [facility] 03-22-2022 Functional Status [facility] 03-21-2022 Functional Status Lunch Percent [address] 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 [facility] 03-19-2022 Functional Status Steady without support [facility] Mental Status Date Assessment Result Facility 02-21-2023 Mental Status Orientation Oriented x 4 [facility] 02-21-2023 Mental Status [facility] 11-08-2022 Mental Status Orientation Oriented x 4 [facility] 05-31-2022 Mental Status Orientation Oriented x 4 [facility] 05-31-2022 Mental Status [facility] 04-04-2022 Mental Status Orientation Oriented x 4 [facility] 03-22-2022 Mental Status Oriented x 4 [facility] 03-22-2022 Mental Status [facility] Clinical Notes 05-08-2021 to 02-21-2023 Note Date & Type Note Facility 02-21-2023 Hospital Discharge instructions Patient Education 02/21/2023 18:38:23 Costochondritis Costochondritis Costochondritis is inflammation of a rib or the cartilage that connects a rib to your breastbone (sternum). It causes tenderness, and sometimes chest pain may be sharp or aching, or it may feel like pressure. Pain may get worse with deep breathing, movement, or exercise. In some cases, the pain is mistaken for a heart attack. Despite this, the condition is not serious. Read on to learn more about the condition and how it can be treated. What causes costochondritis? The cause of costochondritis is not completely clear, but it may happen after a chest injury, chest infection, or coughing episode. Some physical activities can sometimes lead to costochondritis. Large-breasted women may be more likely to have the condition. Often, the reason for the inflammation is unknown. Diagnosing costochondritis There is no test for costochondritis. The condition is diagnosed by the symptoms you have. Your healthcare provider will perform a physical exam. He or she will ask you about your symptoms and examine your chest for tenderness. In some cases, tests are done to rule out more serious problems. These tests may include imaging tests such as chest X-ray, CT scan, or an ECG. Treating costochondritis If an underlying cause is found, treatment for that will likely relieve the problem. Costochondritis often goes away on its own. The course of the condition varies from person to person. It usually lasts from weeks to months. In some cases, mild symptoms continue for months to years. To ease symptoms: Take medicine as directed. These relieve pain and swelling. Ibuprofen or other NSAIDs are often recommended. In some cases, you may be given prescription medicine, such as muscle relaxants. Avoid activities that put stress on the chest or spine. Apply a heating pad (set to warm, not too high, heat) to the breastbone several times a day. Perform stretching exercises as directed. Call the healthcare provider right away if you have any of the following: Pain that is not relieved by medicine Shortness of breath Lightheadedness, dizziness, or fainting Feeling of irregular heartbeat or fast pulse Anyone with chest pain should see a healthcare provider, especially those who are older and may be at risk for heart disease. [id number] [employer]. [address] [place] [address]. All rights reserved. This information is not intended as a substitute for professional medical care. Always follow your healthcare professional's instructions. Follow Up Care 02/21/2023 15:20:12 With:JENNIFER ANTONY DO Address: [address] [place] [phone] When:2-4 days [facility] 02-21-2023 Note Discharge Instructions Thank you for allowing [facility] to assist you with your healthcare needs. The following is important discharge information regarding your hospital visit. Diagnosis from Today's Visit Chest pain Costochondritis What to Do Next Instructions from Your Care Team No qualifying data available. Post Acute Orders No qualifying data available. You Need to Schedule the Following Appointments Follow Up with JENNIFER ANTONY DO When Within 2-4 days Where: [address] [place] [phone] Allergies NKA Medications Please ask your primary doctor or pharmacist before taking any other medication not listed, including over the counter drugs, herbal medications, vitamins and or supplements as they may interact with your home medications. What How Much When Why Instructions Last Dose New acetaminophen-hydrocodone ([place] 325- 5 mg oral tablet) 1 tab(s) by mouth Every 6 hours as needed for as needed for pain Costochondritis Duration: 3 Days Printed Prescription Unchanged acetaminophen (Tylenol 8 Hour 650 mg oral tablet, extended release) 1 tab(s) by mouth Three (3) times a day Costochondritis Current use of intermediate frame tender Eliquis, DVT prophylaxis Generic acetaminophen 500-650mg dosing are fine to use. Do not take with alcohol within 24 hour period. Unchanged apixaban (Eliquis 5 mg oral tablet) 1 tab(s) by mouth Two (2) times a day Unchanged cholecalciferol (Vitamin D3 50 mcg (2000 intl units) oral capsule) 1 cap by mouth Every day Hypersomnia Unchanged DME (DME MISCellaneous) See instructions PE (pulmonary thromboembolism) 3 pairs. Compression stockings. 20 to 30 mmHg. Mid thigh. Per insurance coverage. Unchanged omeprazole (omeprazole 20 mg oral delayed release capsule) 1 cap by mouth Once a day Costochondritis Current use of senior care Eliquis, DVT prophylaxis Stomach prophylaxis on steroid taper with DOAC therapy Unchanged predniSONE (prednisone 10mg tab (TAPER)) Taper 60-40-20-10 mg x 3 days then 5mg x 2 days by mouth Every day Costochondritis Current use of intermediate frame tender Eliquis, DVT prophylaxis Duration: 14 Days Take 6 tabs daily x 3days, then 4 tabs daily x 3days, then 2 tabs daily x 3days,then 1 tab daily x 3days,then 1/ 2 tab daily x 2 days Please take this list to your next doctor s visit. Bring all medications you take, including over the counter medications, herbals and other supplements with you to your doctor s visit. Patients and families are reminded to discard old lists and to update any records with all medication providers or retail pharmacies. Education Materials Costochondritis Costochondritis is inflammation of a rib or the cartilage that connects a rib to your breastbone (sternum). It causes tenderness, and sometimes chest pain may be sharp or aching, or it may feel like pressure. Pain may get worse with deep breathing, movement, or exercise. In some cases, the pain is mistaken for a heart attack. Despite this, the condition is not serious. Read on to learn more about the condition and how it can be treated. What causes costochondritis? The cause of costochondritis is not completely clear, but it may happen after a chest injury, chest infection, or coughing episode. Some physical activities can sometimes lead to costochondritis. Large-breasted women may be more likely to have the condition. Often, the reason for the inflammation is unknown. Diagnosing costochondritis There is no test for costochondritis. The condition is diagnosed by the symptoms you have. Your healthcare provider will perform a physical exam. He or she will ask you about your symptoms and examine your chest for tenderness. In some cases, tests are done to rule out more serious problems. These tests may include imaging tests such as chest X-ray, CT scan, or an ECG. Treating costochondritis If an underlying cause is found, treatment for that will likely relieve the problem. Costochondritis often goes away on its own. The course of the condition varies from person to person. It usually lasts from weeks to months. In some cases, mild symptoms continue for months to years. To ease symptoms: Take medicine as directed. These relieve pain and swelling. Ibuprofen or other NSAIDs are often recommended. In some cases, you may be given prescription medicine, such as muscle relaxants. Avoid activities that put stress on the chest or spine. Apply a heating pad (set to warm, not too high, heat) to the breastbone several times a day. Perform stretching exercises as directed. Call the healthcare provider right away if you have any of the following: Pain that is not relieved by medicine Shortness of breath Lightheadedness, dizziness, or fainting Feeling of irregular heartbeat or fast pulse Anyone with chest pain should see a healthcare provider, especially those who are older and may be at risk for heart disease. [id number] [employer]. [address] [place] [address]. All rights reserved. This information is not intended as a substitute for professional medical care. Always follow your healthcare professional's instructions. Additional Information VACCINATE! IT SAVES LIVES! Members of the community who have not yet received the COVID-19 vaccine and would like to receive it can visit one of [facility] vaccine clinics. There are many vaccine clinic locations within the [facility]. For locations and available times, please visit [email or web address] It is important to note that some COVID mobile vaccine clinics are held outdoors and may be canceled in rainy or stormy conditions. To learn more about pediatric vaccinations (ages 5-11), we invite you to visit the [facility] webpage. https://www.[email or web address].org/pag es/3010-Lpfct-Gdrarjdehdv-Frequent zz-Kxvnh-Bvownxavl.html To learn more about the COVID-19 vaccine, we invite you to visit the CDC website for a list of frequently asked questions. https://www.cdc.gov/coronavirus/-ncov/vaccines/faq.html [facility] Patient Portal Access Instructions: Stay connected with your healthcare team and access your personal medical information anytime with the [facility] Patient Portal. If you would like a full copy of your medical records please contact the [facility] Medical Records Department Friday through Friday between 8a.m. and 4:30p.m. Please follow the directions below to access the portal: 1.Access the email account you provided upon registration to the [facility].2.Look for an invitation email from [facility].3.Open the email and access the invitation link: Accept Invitation to [facility]4.Fill in the required barnes to create your account. Sign into [email or web address].[employer] with your username and password that you created in the above steps to stay up to date. You can then view a summary of results, a summary of your visits, and the ability to download your summaries to your computer or send the information securely to a physician. Remember that your healthcare information is confidential, so carefully consider who you will allow to register on the [facility] Patient Portal for access to your information. You can also access the [facility] Patient Portal on the [employer]. Simply click on Health Records under Health Data and then click on the [employer] logo. HOW TO SAFELY DISPOSE OF PRESCRIPTION MEDICATIONS Please use one of the following methods to safely dispose of your unused medications. 1.Use a drug disposal kit: the drug disposal pouch allows you to safely discard your old and unused drugs. Ask your nurse to give you one when you are discharged.2.Visit a local take-back location: Many local pharmacies and police departments have programs that collect old and unwanted prescription drugs. Call your local pharmacy or go to http://bit.[employer]/7E9Sd2a to find one close to you.3.Make use of household items: Use cat litter or old coffee grounds to dispose medications if other options are not available. Mix your drugs with these household products, seal them in an airtight container and throw it into the garbage. Call [facility]: [phone] to be sure your drugs can be disposed of in this way. Some medicines may require a different approach.4.Never flush your medications down the toilet. IF YOU HAVE BEEN PRESCRIBED AN OPIOIDS FOR PAIN If you have been prescribed an opioid (such as hydrocodone, oxycodone or morphine), it is critical to understand the possible side effects and risks of opioid pain medications. Even when taken as directed, opioids can have several side effects including: Tolerance, meaning you might need to take more of a medication for the same pain relief. Nausea, vomiting and/or constipation. Sleepiness, dizziness, dry mouth, confusion, depression or itching. Physical dependence, meaning you have withdrawal symptoms when a medication is stopped ? this can develop within a few days. KNOW YOUR RESPONSIBILITIES It is important to know exactly how much and how often to take the opioid pain medications you are prescribed. Never take opioids in higher amounts or more often than prescribed. Do not combine opioids with alcohol or other drugs that cause drowsiness, such as benzodiazepines, also known as benzos, including diazepam and alprazolam, muscle relaxants or sleep aids. Never sell or share prescription opioids. This is illegal. Store opioids in a secure place and out of reach of others (including children, family, friends and visitors). The last page(s) of this document has been signed and retained as a CHART COPY Signatures Patient Education Materials Costochondritis Medication Leaflets My discharge plan and instructions have been reviewed and explained to me and I,MYRIAM AMES understand my current condition and have read and understand these discharge instructions. I have received a written copy of the plan/instructions. If I have questions, I am aware that I should contact my doctor. 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 Multiplanar reformatted images are provided for review. MIP images are provided for review. Automated exposure control, iterative reconstruction, and/or weight based adjustment of the mA/kV was utilized to reduce the radiation dose to as low as reasonably achievable. COMPARISON: CT chest 11/08/2022 HISTORY: ORDERING SYSTEM PROVIDED HISTORY: Reason for Exam: chest pain; suspect PE FINDINGS: Pulmonary Arteries: Mild respiratory motion artifact which limits evaluation of the subsegmental arteries. Within these limitations, no evidence of intraluminal filling defect to suggest pulmonary embolism. Main pulmonary artery is normal in caliber. Mediastinum: No evidence of mediastinal or hilar lymphadenopathy. The heart and pericardium demonstrate no acute abnormality. There is no acute abnormality of the thoracic aorta. Lungs/pleura: The lungs are without acute process. No focal consolidation or pulmonary edema. No evidence of pleural effusion or pneumothorax. Mild bilateral lower lobe ground-glass opacities are likely on the basis of atelectasis/hypoventilatory changes. Upper Abdomen: Limited images of the upper abdomen are unremarkable. Soft Tissues/Bones: No acute bone or soft tissue abnormality. Left-sided remote rib fractures. Mild degenerative changes. IMPRESSION: No evidence of a pulmonary embolism or acute intrathoracic process. I have personally reviewed the images of this examination and agree with the resident's findings and interpretation. Interpreted by: Chaitanya Byrd Preliminary Report By: Hetal Weaver Electronically signed By Chaitanya Byrd Dictated Date: 02/21/2023 6:06:12 PM Prelim Date: 02/21/2023 6:16:23 PM Sign Date: 02/21/2023 6:19:56 PM Ordering Provider: ALVAREZ BARCLAY [facility] 02-21-2023 Note Sinus rhythm Borderline left axis deviation Compared to ECG at 11/08/2022 02:07:41 BORDERLINE ECG Electronic Signature: IRVIN VALLE DO 02/21/2023 15:35:04 [facility] 12-25-2022 Note ORIGINAL EXAMINATION: THREE XRAY VIEWS OF THE LEFT HAND; THREE XRAY VIEWS OF THE LEFT WRIST 12/25/2022 2:21 pm COMPARISON: None. HISTORY: ORDERING SYSTEM PROVIDED HISTORY: Reason for Exam: hand pain, persistent. Cannot extend fingers fully Left lateral wrist pain for 1 week FINDINGS: No acute fracture or dislocation is identified. The carpal arcs are maintained. No aggressive or destructive osseous process is seen. No significant degenerative changes of the hand or wrist. No unexpected radiopaque foreign body. IMPRESSION: No acute radiographic findings. Interpreted by: Morelia Traylor Preliminary Report By: Morelia Traylor Electronically signed By Morelia Traylor Dictated Date: 12/25/2022 2:23:32 PM Prelim Date: 12/25/2022 2:27:27 PM Sign Date: 12/25/2022 2:27:27 PM Ordering Provider: [facility] 12-25-2022 Note ORIGINAL EXAMINATION: THREE XRAY VIEWS OF THE LEFT HAND; THREE XRAY VIEWS OF THE LEFT WRIST 12/25/2022 2:21 pm COMPARISON: None. HISTORY: ORDERING SYSTEM PROVIDED HISTORY: Reason for Exam: hand pain, persistent. Cannot extend fingers fully Left lateral wrist pain for 1 week FINDINGS: No acute fracture or dislocation is identified. The carpal arcs are maintained. No aggressive or destructive osseous process is seen. No significant degenerative changes of the hand or wrist. No unexpected radiopaque foreign body. IMPRESSION: No acute radiographic findings. Interpreted by: Morelia Traylor Preliminary Report By: Morelia Traylor Electronically signed By Morelia Traylor Dictated Date: 12/25/2022 2:23:32 PM Prelim Date: 12/25/2022 2:27:27 PM Sign Date: 12/25/2022 2:27:27 PM Ordering Provider: [facility] 11-08-2022 Hospital Discharge instructions Patient Education 11/08/2022 03:15:21 Diagnosing a Thyroid Problem Diagnosing a Thyroid Problem Fine needle aspiration. Your healthcare provider thinks you may have a thyroid problem. In many cases, a thyroid problem can be easy to diagnose. Your healthcare provider is likely to ask about your medical history, give you a physical exam, and have you take blood tests. You may also need other tests. Based on the results, your healthcare provider may refer you to a hormone specialist (coating machine operator helper) or a surgeon. Medical history Your healthcare provider will ask about your medical history. Tell him or her if you: Have had changes in body temperature, heartbeat, weight, or energy level Are taking any medicines or supplements Have ever had thyroid surgery Have a family history of thyroid problems Are or plan to become Have ever been treated with radiation to the head or neck Physical exam After the medical history, your healthcare provider will examine you. He or she will feel your neck to check your thyroid gland for changes in size or shape. Your healthcare provider may also look for changes in heart rate, reflexes, muscle strength, or skin texture. Blood tests Your healthcare provider will order blood tests. They may include: TSH test. This shows how much thyroid stimulating hormone (TSH) is being made by the pituitary gland. This test can show if your thyroid is normal, overactive (hyperthyroidism), or underactive (hypothyroidism). T3 and T4 tests. Theseshow the levels of T3 and T4 thyroid hormones in the blood. This test can help diagnose hyperthyroidism or hypothyroidism. Other tests Based on the results of your exam and blood tests, you may have other tests. They may include: Thyroid antibody tests. These are blood tests that look for problems with the immune system. These tests are most often to look for underactive or overactive thyroid. Ultrasound. This test uses sound waves to create an image showing the size and shape of the thyroid gland. It is most often used to check for a lump in the thyroid (nodule) or enlarged thyroid(goiter). Radioactive iodine uptake test. This test measures how much iodine the thyroid gland takes in. It is most often to check for overactive thyroid. Thyroid scan. This is an imaging test that can show if part of the thyroid gland is making too much thyroid hormone. It is most often used to check for overactive thyroid. Fine needle aspiration (FNA) If you have a nodule, you may have a fine needle aspiration done. This is a type of biopsy. A biopsy is a procedure to remove a small sample of tissue. FNA is the best test to find out if thyroid cells are cancer. The healthcare provider uses a needle to take cells from the thyroid. The cells are then checked with a microscope. If cancer is suspected, other tests may also be done to help determine the type of cancer. Risks and complications of FNA are rare, but include mild discomfort, bleeding, and skin infection. [id number] [employer]. [address] [place] [address]. All rights reserved. This information is not intended as a substitute for professional medical care. Always follow your healthcare professional's instructions. 11/08/2022 03:15:15 Chest Pain, Uncertain Cause Uncertain Causes of Chest Pain Chest pain can happen for a number of reasons. Sometimes the cause can't be determined. If your condition does not seem serious, and your pain does not appear to be coming from your heart, your healthcare provider may recommend watching it closely. Sometimes the signs of a serious problem take more time to appear. Many problems not related to your heart can cause chest pain. These include: Musculoskeletal. Costochondritis is an inflammation of the tissues around the ribs that can occur from trauma or overuse injuries, or a strain of the muscles of the chest wall Respiratory. Pneumonia, collapsed lung (pneumothorax), or inflammation of the lining of the chest and lungs (pleurisy) Gastrointestinal. Esophageal reflux, heartburn, ulcers, or gallbladder disease Anxiety and panic disorders Nerve compression and inflammation Rare miscellaneous problems such as aortic aneurysm (a swelling of the large artery coming out of the heart) or pulmonary embolism (a blood clot in the lungs) Home care After your visit, follow these recommendations: Rest today and avoid strenuous activity. Take any prescribed medicine as directed. Be aware of any recurrent chest pain and notice any changes Follow-up care Follow up with your healthcare provider if you do not start to feel better within 24 hours, or as advised. Call 911 Call 911 if any of these occur: A change in the type of pain: if it feels different, becomes more severe, lasts longer, or begins to spread into your shoulder, arm, neck, jaw or back Shortness of breath or increased pain with breathing Weakness, dizziness, or fainting Rapid heart beat Crushing sensation in your chest When to seek medical advice Call your healthcare provider right away if any of the following occur: Cough with dark colored sputum (phlegm) or blood Fever of 100.4 F (38 C) or higher, or as directed by your healthcare provider Swelling, pain or redness in one leg [id number] [employer]. [address] [place] [address], [place] [address]. All rights reserved. This information is not intended as a substitute for professional medical care. Always follow your healthcare professional's instructions. Follow Up Care 11/08/2022 01:50:32 With:JENNIFER ANTONY DO Address: [address] [place] [address] [phone] When:2-4 days [facility] 11-08-2022 Note Discharge Instructions Thank you for allowing [facility] to assist you with your healthcare needs. The following is important discharge information regarding your hospital visit. Diagnosis from Today's Visit Atypical chest pain Dyspnea Headache SOB - Shortness of breath Thyroid nodule What to Do Next Instructions from Your Care Team on your CT scan: 2.0 cm right thyroid lobe hypodense nodule. Nonemergent outpatient thyroid ultrasound is recommended for further evaluation. No qualifying data available. Post Acute Orders No qualifying data available. You Need to Schedule the Following Appointments Follow Up with JENNIFER ANTONY DO When Within 2-4 days Where: [address] [place] [phone] Allergies NKA Medications Please ask your primary doctor or pharmacist before taking any other medication not listed, including over the counter drugs, herbal medications, vitamins and or supplements as they may interact with your home medications. What How Much When Why Instructions Last Dose Unchanged apixaban (Eliquis 5 mg oral tablet) 1 tab(s) by mouth Two (2) times a day Unchanged cholecalciferol (Vitamin D3 50 mcg (2000 intl units) oral capsule) 1 cap by mouth Every day Hypersomnia Unchanged DME (DME MISCellaneous) See instructions PE (pulmonary thromboembolism) 3 pairs. Compression stockings. 20 to 30 mmHg. Mid thigh. Per insurance coverage. Please take this list to your next doctor s visit. Bring all medications you take, including over the counter medications, herbals and other supplements with you to your doctor s visit. Patients and families are reminded to discard old lists and to update any records with all medication providers or retail pharmacies. Education Materials Diagnosing a Thyroid Problem Fine needle aspiration. Your healthcare provider thinks you may have a thyroid problem. In many cases, a thyroid problem can be easy to diagnose. Your healthcare provider is likely to ask about your medical history, give you a physical exam, and have you take blood tests. You may also need other tests. Based on the results, your healthcare provider may refer you to a hormone specialist (coating machine operator helper) or a surgeon. Medical history Your healthcare provider will ask about your medical history. Tell him or her if you: Have had changes in body temperature, heartbeat, weight, or energy level Are taking any medicines or supplements Have ever had thyroid surgery Have a family history of thyroid problems Are or plan to become Have ever been treated with radiation to the head or neck Physical exam After the medical history, your healthcare provider will examine you. He or she will feel your neck to check your thyroid gland for changes in size or shape. Your healthcare provider may also look for changes in heart rate, reflexes, muscle strength, or skin texture. Blood tests Your healthcare provider will order blood tests. They may include: TSH test. This shows how much thyroid stimulating hormone (TSH) is being made by the pituitary gland. This test can show if your thyroid is normal, overactive (hyperthyroidism), or underactive (hypothyroidism). T3 and T4 tests. Theseshow the levels of T3 and T4 thyroid hormones in the blood. This test can help diagnose hyperthyroidism or hypothyroidism. Other tests Based on the results of your exam and blood tests, you may have other tests. They may include: Thyroid antibody tests. These are blood tests that look for problems with the immune system. These tests are most often to look for underactive or overactive thyroid. Ultrasound. This test uses sound waves to create an image showing the size and shape of the thyroid gland. It is most often used to check for a lump in the thyroid (nodule) or enlarged thyroid(goiter). Radioactive iodine uptake test. This test measures how much iodine the thyroid gland takes in. It is most often to check for overactive thyroid. Thyroid scan. This is an imaging test that can show if part of the thyroid gland is making too much thyroid hormone. It is most often used to check for overactive thyroid. Fine needle aspiration (FNA) If you have a nodule, you may have a fine needle aspiration done. This is a type of biopsy. A biopsy is a procedure to remove a small sample of tissue. FNA is the best test to find out if thyroid cells are cancer. The healthcare provider uses a needle to take cells from the thyroid. The cells are then checked with a microscope. If cancer is suspected, other tests may also be done to help determine the type of cancer. Risks and complications of FNA are rare, but include mild discomfort, bleeding, and skin infection. [id number] [employer]. [address] [place] [id number]. All rights reserved. This information is not intended as a substitute for professional medical care. Always follow your healthcare professional's instructions. Uncertain Causes of Chest Pain Chest pain can happen for a number of reasons. Sometimes the cause can't be determined. If your condition does not seem serious, and your pain does not appear to be coming from your heart, your healthcare provider may recommend watching it closely. Sometimes the signs of a serious problem take more time to appear. Many problems not related to your heart can cause chest pain. These include: Musculoskeletal. Costochondritis is an inflammation of the tissues around the ribs that can occur from trauma or overuse injuries, or a strain of the muscles of the chest wall Respiratory. Pneumonia, collapsed lung (pneumothorax), or inflammation of the lining of the chest and lungs (pleurisy) Gastrointestinal. Esophageal reflux, heartburn, ulcers, or gallbladder disease Anxiety and panic disorders Nerve compression and inflammation Rare miscellaneous problems such as aortic aneurysm (a swelling of the large artery coming out of the heart) or pulmonary embolism (a blood clot in the lungs) Home care After your visit, follow these recommendations: Rest today and avoid strenuous activity. Take any prescribed medicine as directed. Be aware of any recurrent chest pain and notice any changes Follow-up care Follow up with your healthcare provider if you do not start to feel better within 24 hours, or as advised. Call 911 Call 911 if any of these occur: A change in the type of pain: if it feels different, becomes more severe, lasts longer, or begins to spread into your shoulder, arm, neck, jaw or back Shortness of breath or increased pain with breathing Weakness, dizziness, or fainting Rapid heart beat Crushing sensation in your chest When to seek medical advice Call your healthcare provider right away if any of the following occur: Cough with dark colored sputum (phlegm) or blood Fever of 100.4 F (38 C) or higher, or as directed by your healthcare provider Swelling, pain or redness in one leg [id number] [employer]. [address] [place] [address], [place] [address]. All rights reserved. This information is not intended as a substitute for professional medical care. Always follow your healthcare professional's instructions. Additional Information VACCINATE! IT SAVES LIVES! Members of the community who have not yet received the COVID-19 vaccine and would like to receive it can visit one of [facility] vaccine clinics. There are many vaccine clinic locations within the [facility]. For locations and available times, please visit [email or web address] It is important to note that some COVID mobile vaccine clinics are held outdoors and may be canceled in rainy or stormy conditions. To learn more about pediatric vaccinations (ages 5-11), we invite you to visit the [facility] webpage. https://www.[employer].org/pag es/0395-Wuinx-Tavuoguuxcl-Frequent bx-Xyjfz-Sfxrxwyzr.html To learn more about the COVID-19 vaccine, we invite you to visit the CDC website for a list of frequently asked questions. https://www.cdc.gov/coronavirus/ 19-ncov/vaccines/faq.html [facility] Patient Portal Access Instructions: Stay connected with your healthcare team and access your personal medical information anytime with the [facility] Patient Portal. If you would like a full copy of your medical records please contact the [facility] Medical Records Department Friday through Friday between 8a.m. and 4:30p.m. Please follow the directions below to access the portal: 1.Access the email account you provided upon registration to the hospital.2.Look for an invitation email from [facility].3.Open the email and access the invitation link: Accept Invitation to [facility]4.Fill in the required barnes to create your account. Sign into [email or web address] with your username and password that you created in the above steps to stay up to date. You can then view a summary of results, a summary of your visits, and the ability to download your summaries to your computer or send the information securely to a physician. Remember that your healthcare information is confidential, so carefully consider who you will allow to register on the [facility] Patient Portal for access to your information. You can also access the [facility] Patient Portal on the [employer]. Simply click on Health Records under Health Data and then click on the [employer] logo. HOW TO SAFELY DISPOSE OF PRESCRIPTION MEDICATIONS Please use one of the following methods to safely dispose of your unused medications. 1.Use a drug disposal kit: the drug disposal pouch allows you to safely discard your old and unused drugs. Ask your nurse to give you one when you are discharged.2.Visit a local take-back location: Many local pharmacies and police departments have programs that collect old and unwanted prescription drugs. Call your local pharmacy or go to http://Sensentia.[employer]/3Z6Sd2t to find one close to you.3.Make use of household items: Use cat litter or old coffee grounds to dispose medications if other options are not available. Mix your drugs with these household products, seal them in an airtight container and throw it into the garbage. Call [facility]: [phone] to be sure your drugs can be disposed of in this way. Some medicines may require a different approach.4.Never flush your medications down the toilet. IF YOU HAVE BEEN PRESCRIBED AN OPIOIDS FOR PAIN If you have been prescribed an opioid (such as hydrocodone, oxycodone or morphine), it is critical to understand the possible side effects and risks of opioid pain medications. Even when taken as directed, opioids can have several side effects including: Tolerance, meaning you might need to take more of a medication for the same pain relief. Nausea, vomiting and/or constipation. Sleepiness, dizziness, dry mouth, confusion, depression or itching. Physical dependence, meaning you have withdrawal symptoms when a medication is stopped ? this can develop within a few days. KNOW YOUR RESPONSIBILITIES It is important to know exactly how much and how often to take the opioid pain medications you are prescribed. Never take opioids in higher amounts or more often than prescribed. Do not combine opioids with alcohol or other drugs that cause drowsiness, such as benzodiazepines, also known as benzos, including diazepam and alprazolam, muscle relaxants or sleep aids. Never sell or share prescription opioids. This is illegal. Store opioids in a secure place and out of reach of others (including children, family, friends and visitors). The last page(s) of this document has been signed and retained as a CHART COPY Signatures Patient Education Materials Diagnosing a Thyroid Problem Chest Pain, Uncertain Cause Medication Leaflets My discharge plan and instructions have been reviewed and explained to me and I,MYRIAM AMES understand my current condition and have read and understand these discharge instructions. I have received a written copy of the plan/instructions. If I have questions, I am aware that I should contact my doctor. Patient/Horticultural Therapist Signature: Date/Time: Relationship to Patient: ___ Witness Name/Signature: Date/Time: [facility] 11-08-2022 Note ORIGINAL EXAMINATION: CTA OF THE CHEST 11/08/2022 2:44 am TECHNIQUE: CTA of the chest was performed after the administration of intravenous contrast. Multiplanar reformatted images are provided for review. MIP images are provided for review. Automated exposure control, iterative reconstruction, and/or weight based adjustment of the mA/kV was utilized to reduce the radiation dose to as low as reasonably achievable. COMPARISON: CTA 03/19/2022. HISTORY: ORDERING SYSTEM PROVIDED HISTORY: Reason for Exam: chest pain; suspect PE FINDINGS: Motion artifact obscures some evaluation. Pulmonary Arteries: Pulmonary arteries are adequately opacified for evaluation. No evidence of intraluminal filling defect to suggest pulmonary embolism. Main pulmonary artery is normal in caliber. No leftward bowing of the intraventricular septum. Mediastinum: No evidence of mediastinal lymphadenopathy. The heart and pericardium demonstrate no acute abnormality. There is no acute abnormality of the thoracic aorta. 2.0 cm right thyroid lobe hypodense nodule (series 601, image 43).. Lungs/pleura: Expiratory phase imaging with subsegmental atelectasis at the lung bases. The lungs are without acute process. No focal consolidation or pulmonary edema. No evidence of pleural effusion or pneumothorax. Upper Abdomen: Stable subcentimeter left hepatic lobe hypodensity too small to characterize but statistically represents a cyst or hemangioma. The upper abdomen is otherwise unremarkable.. Soft Tissues/Bones: Multilevel degenerative changes of the spine. Chronic left posterolateral rib deformities. No acute bone or soft tissue abnormality. IMPRESSION: No evidence of pulmonary embolism or acute process within the lungs. 2.0 cm right thyroid lobe hypodense nodule. Nonemergent outpatient thyroid ultrasound is recommended for further evaluation. I have personally reviewed the images of this examination, and agree with the resident's findings and interpretation. RECOMMENDATIONS: 2 cm incidental right thyroid nodule. Recommend thyroid US. Reference: J Am Sana Radiol. 2015 May;12(2): 143-50 RECOMD:ITN Interpreted by: Fernando Klein MD Preliminary Report By: Frances Harrington Electronically signed By Fernando Klein MD Dictated Date: 11/08/2022 2:45:56 AM Prelim Date: 11/08/2022 3:04:49 AM Sign Date: 11/08/2022 3:07:51 AM Ordering Provider: KANCHAN SAWYER [facility] 11-08-2022 Note Sinus rhythm Borderline left axis deviation Abnormal R-wave progression, early transition Electronic Signature: KANCHAN SAWYER MD 11/08/2022 02:12:25 [facility] 05-31-2022 Hospital Discharge instructions Patient Education 05/31/2022 16:19:15 Chest Wall Pain, Costochondritis Chest Wall Pain: Costochondritis The chest pain that you have had today is caused by costochondritis. This condition is caused by an inflammation of the cartilage joining your ribs to your breastbone. It is not caused by heart or lung problems. Your healthcare team has made sure that the chest pain you feel is not from a life threatening cause of chest pain such as heart attack, collapsed lung, blood clot in the lung, tear in the aorta, or esophageal rupture. The inflammation may have been brought on by a blow to the chest, lifting heavy objects, intense exercise, or an illness that made you cough and sneeze a lot. It often occurs during times of emotional stress. It can be painful, but it is not dangerous. It usually goes away in 1 to 2 weeks. But it may happen again. Rarely, a more serious condition may cause symptoms similar to costochondritis. That s why it s important to watch for the warning signs listed below. Home care Follow these guidelines when caring for yourself at home: If you feel that emotional stress is a cause of your condition, try to figure out the sources of that stress. It may not be obvious. Learn ways to deal with the stress in your life. This can include regular exercise, muscle relaxation, meditation, or simply taking time out for yourself. You may use acetaminophen, ibuprofen, or naproxen to control pain, unless another pain medicine was prescribed. If you have liver or kidney disease or ever had a stomach ulcer, talk with your healthcare provider before using these medicines. You can also help ease pain by using a hot, wet compress or heating pad. Use this with or without a medicated skin cream that helps relieves pain. Do stretching exercise as advised by your provider. Take any prescribed medicines as directed. Follow-up care Follow up with your healthcare provider, or as advised, if you do not start to get better in the next 2 days. When to seek medical advice Call your healthcare provider right away if any of these occur: A change in the type of pain. Call if it feels different, becomes more serious, lasts longer, or spreads into your shoulder, arm, neck, jaw, or back. Shortness of breath or pain gets worse when you breathe Weakness, dizziness, or fainting Cough with dark-colored sputum (phlegm) or blood Abdominal pain Dark red or black stools Fever of 100.4 F (38 C) or higher, or as directed by your healthcare provider [id number] [employer]. [address] [place] [address], [place] [address]. All rights reserved. This information is not intended as a substitute for professional medical care. Always follow your healthcare professional's instructions. Follow Up Care 05/31/2022 14:14:58 With:JENNIFER ANTONY DO Address: [address] [place] [phone] When:2-4 days [facility] 05-31-2022 Note Discharge Instructions Thank you for allowing [facility] to assist you with your healthcare needs. The following is important discharge information regarding your hospital visit. Diagnosis from Today's Visit Chest pain What to Do Next Instructions from Your Care Team No qualifying data available. Post Acute Orders No qualifying data available. You Need to Schedule the Following Appointments Follow Up with JENNIFER ANTONY DO When Within 2-4 days Where: [address] [facility] [place] [address]- [phone] Allergies NKA Medications Please ask your primary doctor or pharmacist before taking any other medication not listed, including over the counter drugs, herbal medications, vitamins and or supplements as they may interact with your home medications. What How Much When Why Instructions Last Dose New lidocaine topical (Lidoderm 5% topical patch) 1 patch(es) Topical Every day Duration: 7 Days Printed Prescription Unchanged apixaban (Eliquis 5 mg oral tablet) 1 tab(s) by mouth Two (2) times a day Unchanged DME (DME MISCellaneous) See instructions PE (pulmonary thromboembolism) 3 pairs. Compression stockings. 20 to 30 mmHg. Mid thigh. Per insurance coverage. Please take this list to your next doctor s visit. Bring all medications you take, including over the counter medications, herbals and other supplements with you to your doctor s visit. Patients and families are reminded to discard old lists and to update any records with all medication providers or retail pharmacies. Education Materials Chest Wall Pain: Costochondritis The chest pain that you have had today is caused by costochondritis. This condition is caused by an inflammation of the cartilage joining your ribs to your breastbone. It is not caused by heart or lung problems. Your healthcare team has made sure that the chest pain you feel is not from a life threatening cause of chest pain such as heart attack, collapsed lung, blood clot in the lung, tear in the aorta, or esophageal rupture. The inflammation may have been brought on by a blow to the chest, lifting heavy objects, intense exercise, or an illness that made you cough and sneeze a lot. It often occurs during times of emotional stress. It can be painful, but it is not dangerous. It usually goes away in 1 to 2 weeks. But it may happen again. Rarely, a more serious condition may cause symptoms similar to costochondritis. That s why it s important to watch for the warning signs listed below. Home care Follow these guidelines when caring for yourself at home: If you feel that emotional stress is a cause of your condition, try to figure out the sources of that stress. It may not be obvious. Learn ways to deal with the stress in your life. This can include regular exercise, muscle relaxation, meditation, or simply taking time out for yourself. You may use acetaminophen, ibuprofen, or naproxen to control pain, unless another pain medicine was prescribed. If you have liver or kidney disease or ever had a stomach ulcer, talk with your healthcare provider before using these medicines. You can also help ease pain by using a hot, wet compress or heating pad. Use this with or without a medicated skin cream that helps relieves pain. Do stretching exercise as advised by your provider. Take any prescribed medicines as directed. Follow-up care Follow up with your healthcare provider, or as advised, if you do not start to get better in the next 2 days. When to seek medical advice Call your healthcare provider right away if any of these occur: A change in the type of pain. Call if it feels different, becomes more serious, lasts longer, or spreads into your shoulder, arm, neck, jaw, or back. Shortness of breath or pain gets worse when you breathe Weakness, dizziness, or fainting Cough with dark-colored sputum (phlegm) or blood Abdominal pain Dark red or black stools Fever of 100.4 F (38 C) or higher, or as directed by your healthcare provider [id number] [employer]. [address] [place], [place] [id number]. All rights reserved. This information is not intended as a substitute for professional medical care. Always follow your healthcare professional's instructions. Additional Information VACCINATE! IT SAVES LIVES! Members of the community who have not yet received the COVID-19 vaccine and would like to receive it can visit one of [facility] vaccine clinics. There are many vaccine clinic locations within the [facility]. For locations and available times, please visit [email or web address] [email or web address] It is important to note that some COVID mobile vaccine clinics are held outdoors and may be canceled in rainy or stormy conditions. To learn more about pediatric vaccinations (ages 5-11), we invite you to visit the [facility] webpage. https://www.[facility].org/pag es/5625-Ljcce-Kotlgsnanmv-Frequent ve-Pnkbk-Czubzvidu.html To learn more about the COVID-19 vaccine, we invite you to visit the CDC website for a list of frequently asked questions. https://www.cdc.gov/coronavirus/-ncov/vaccines/faq.html [facility] Patient Portal Access Instructions: Stay connected with your healthcare team and access your personal medical information anytime with the [facility] Patient Portal. If you would like a full copy of your medical records please contact the [facility] Medical Records Department Friday through Friday between 8a.m. and 4:30p.m. Please follow the directions below to access the portal: 1.Access the email account you provided upon registration to the [facility].2.Look for an invitation email from [facility].3.Open the email and access the invitation link: Accept Invitation to [facility]4.Fill in the required barnes to create your account. Sign into [email or web address] with your username and password that you created in the above steps to stay up to date. You can then view a summary of results, a summary of your visits, and the ability to download your summaries to your computer or send the information securely to a physician. Remember that your healthcare information is confidential, so carefully consider who you will allow to register on the [facility] Patient Portal for access to your information. You can also access the [facility] Patient Portal on the [employer]. Simply click on Health Records under Health Data and then click on the [employer] logo. HOW TO SAFELY DISPOSE OF PRESCRIPTION MEDICATIONS Please use one of the following methods to safely dispose of your unused medications. 1.Use a drug disposal kit: the drug disposal pouch allows you to safely discard your old and unused drugs. Ask your nurse to give you one when you are discharged.2.Visit a local take-back location: Many local pharmacies and police departments have programs that collect old and unwanted prescription drugs. Call your local pharmacy or go to http://bit.[employer]/6H1Wb2l to find one close to you.3.Make use of household items: Use cat litter or old coffee grounds to dispose medications if other options are not available. Mix your drugs with these household products, seal them in an airtight container and throw it into the garbage. Call [facility]: [phone] to be sure your drugs can be disposed of in this way. Some medicines may require a different approach.4.Never flush your medications down the toilet. IF YOU HAVE BEEN PRESCRIBED AN OPIOIDS FOR PAIN If you have been prescribed an opioid (such as hydrocodone, oxycodone or morphine), it is critical to understand the possible side effects and risks of opioid pain medications. Even when taken as directed, opioids can have several side effects including: Tolerance, meaning you might need to take more of a medication for the same pain relief. Nausea, vomiting and/or constipation. Sleepiness, dizziness, dry mouth, confusion, depression or itching. Physical dependence, meaning you have withdrawal symptoms when a medication is stopped ? this can develop within a few days. KNOW YOUR RESPONSIBILITIES It is important to know exactly how much and how often to take the opioid pain medications you are prescribed. Never take opioids in higher amounts or more often than prescribed. Do not combine opioids with alcohol or other drugs that cause drowsiness, such as benzodiazepines, also known as benzos, including diazepam and alprazolam, muscle relaxants or sleep aids. Never sell or share prescription opioids. This is illegal. Store opioids in a secure place and out of reach of others (including children, family, friends and visitors). The last page(s) of this document has been signed and retained as a CHART COPY Signatures Patient Education Materials Chest Wall Pain, Costochondritis Medication Leaflets My discharge plan and instructions have been reviewed and explained to me and I,MYRIAM AMES understand my current condition and have read and understand these discharge instructions. I have received a written copy of the plan/instructions. If I have questions, I am aware that I should contact my doctor. Patient/Horticultural Therapist Signature: Date/Time: Relationship to Patient: ___ Witness Name/Signature: Date/Time: [facility] Grayling 04-04-2022 Hospital Discharge instructions Patient Education 04/04/2022 16:08:46 Understanding Deep Vein Thrombosis Understanding Deep Vein Thrombosis Deep vein thrombosis (DVT) is a condition in which a blood clot or thrombus forms in a deep vein. A blood clot is most common in the leg, but can develop in a large vein deep inside the leg, arm, or other part of the body. Part of the clot called an embolus can separate from the vein. It may travel to the lungs and form a pulmonary embolus (PE). This can cut off the flow to a portion of the lung or to the entire lung. A PE is a medical emergency and may cause . Healthcare providers use the term venous thromboembolism (VTE) to describe the two conditions, DVT and PE. They use the term VTE because the two conditions are very closely related. And, because their prevention and treatment are closely related. Over time, a blood clot can also permanently damage veins. To protect your health, a blood clot must be treated right away. How DVT develops The deep veins of the legs are located in the muscles. These help carry blood from the legs to the heart. When leg muscles contract and relax, blood is squeezed through the veins back to the heart. One-way valves inside the veins help keep the blood moving in the right direction. When blood moves too slowly or not at all, it can pool in the veins. This makes a clot more likely to form. Risk factors Anyone can develop a blood clot. The following risk factors make a blood clot more likely to happen: Being inactive for a long period, such as when you re in the hospital, or traveling by plane or car Injury to a vein from an accident, a broken bone, or surgery Having blood clots in the past Personal or family history of a blood-clotting disorder Recent surgery Cancer and certain cancer treatments Smoking Other factors can also put you at higher risk for a blood clot. They include: Age over 60 years Taking control or hormone replacement Having other vein problems Being overweight Common symptoms A blood clot does not always cause obvious symptoms. If you do have symptoms, they usually happen suddenly. They may include: Pain, especially deep in the muscle Swelling Aching or tenderness Red or warm skin Fever Call your healthcare provider if you have these symptoms. Symptoms of pulmonary embolism may include: Trouble breathing Fast heartbeat Chest pain Sweating Coughing (may cough up blood) Fainting Call 911 if you have these symptoms. If you take medicine to help prevent blood clots, you have an increased risk of bleeding. Call 911 if you have heavy or uncontrolled bleeding. Call your healthcare provider if you have other signs or symptoms of bleeding like blood in the urine, bleeding with bowel movements, or bleeding from the nose, gums, a cut, or vagina. Diagnosing DVT Diagnosis begins with thorough questions about your symptoms and medical history along with a physical exam. Diagnostic tests include: An imaging test called a duplex ultrasound. This test uses sound waves to create pictures of veins and blood flow. Blood tests to check for clotting and other problems. If your healthcare provider thinks you may have pulmonary embolism, additional testing will be done. Treating DVT Treating a blood clot may include: Medicine to thin the blood and prevent pulmonary embolism and other complications. Staying in the hospital. This may or may not be necessary. Surgery for some people, like those who cannot take blood-thinning medicines. Preventing DVT Many people who are in the hospital are at an increased risk of developing blood clots. So, preventing blood clots is an important part of in-hospital care. The care may include getting out of bed regularly, taking medicine, or using special therapies or devices. Other factors and conditions may increase the risk of blood clots. Review your risk with your healthcare provider. [id number] [employer]. [address] [place] [id number]. All rights reserved. This information is not intended as a substitute for professional medical care. Always follow your healthcare professional's instructions. Follow Up Care 04/04/2022 13:11:43 With:Bobby Connolly Pt. Refferral [phone] Address:Unknown When:2-4 days [facility] 04-04-2022 Note Discharge Instructions Thank you for allowing [facility] to assist you with your healthcare needs. The following is important discharge information regarding your hospital visit. Diagnosis from Today's Visit Leg pain-swelling What to Do Next Instructions from Your Care Team No qualifying data available. Post Acute Orders No qualifying data available. You Need to Schedule the Following Appointments Follow Up with Call SELENE Connolly Pt. Refferral [phone] When Within 2-4 days Allergies NKA Medications Please ask your primary doctor or pharmacist before taking any other medication not listed, including over the counter drugs, herbal medications, vitamins and or supplements as they may interact with your home medications. What How Much When Why Instructions Last Dose Unchanged apixaban (apixaban 5 mg oral tablet) [10mg BID x 7days-then 5mg BID] by mouth Two (2) times a day Duration: 30 Days Unchanged DME (DME MISCellaneous) See instructions PE (pulmonary thromboembolism) 3 pairs. Compression stockings. 20 to 30 mmHg. Mid thigh. Per insurance coverage. Please take this list to your next doctor s visit. Bring all medications you take, including over the counter medications, herbals and other supplements with you to your doctor s visit. Patients and families are reminded to discard old lists and to update any records with all medication providers or retail pharmacies. Education Materials Understanding Deep Vein Thrombosis Deep vein thrombosis (DVT) is a condition in which a blood clot or thrombus forms in a deep vein. A blood clot is most common in the leg, but can develop in a large vein deep inside the leg, arm, or other part of the body. Part of the clot called an embolus can separate from the vein. It may travel to the lungs and form a pulmonary embolus (PE). This can cut off the flow to a portion of the lung or to the entire lung. A PE is a medical emergency and may cause . Healthcare providers use the term venous thromboembolism (VTE) to describe the two conditions, DVT and PE. They use the term VTE because the two conditions are very closely related. And, because their prevention and treatment are closely related. Over time, a blood clot can also permanently damage veins. To protect your health, a blood clot must be treated right away. How DVT develops The deep veins of the legs are located in the muscles. These help carry blood from the legs to the heart. When leg muscles contract and relax, blood is squeezed through the veins back to the heart. One-way valves inside the veins help keep the blood moving in the right direction. When blood moves too slowly or not at all, it can pool in the veins. This makes a clot more likely to form. Risk factors Anyone can develop a blood clot. The following risk factors make a blood clot more likely to happen: Being inactive for a long period, such as when you re in the hospital, or traveling by plane or car Injury to a vein from an accident, a broken bone, or surgery Having blood clots in the past Personal or family history of a blood-clotting disorder Recent surgery Cancer and certain cancer treatments Smoking Other factors can also put you at higher risk for a blood clot. They include: Age over 60 years Taking control or hormone replacement Having other vein problems Being overweight Common symptoms A blood clot does not always cause obvious symptoms. If you do have symptoms, they usually happen suddenly. They may include: Pain, especially deep in the muscle Swelling Aching or tenderness Red or warm skin Fever Call your healthcare provider if you have these symptoms. Symptoms of pulmonary embolism may include: Trouble breathing Fast heartbeat Chest pain Sweating Coughing (may cough up blood) Fainting Call 911 if you have these symptoms. If you take medicine to help prevent blood clots, you have an increased risk of bleeding. Call 911 if you have heavy or uncontrolled bleeding. Call your healthcare provider if you have other signs or symptoms of bleeding like blood in the urine, bleeding with bowel movements, or bleeding from the nose, gums, a cut, or vagina. Diagnosing DVT Diagnosis begins with thorough questions about your symptoms and medical history along with a physical exam. Diagnostic tests include: An imaging test called a duplex ultrasound. This test uses sound waves to create pictures of veins and blood flow. Blood tests to check for clotting and other problems. If your healthcare provider thinks you may have pulmonary embolism, additional testing will be done. Treating DVT Treating a blood clot may include: Medicine to thin the blood and prevent pulmonary embolism and other complications. Staying in the hospital. This may or may not be necessary. Surgery for some people, like those who cannot take blood-thinning medicines. Preventing DVT Many people who are in the hospital are at an increased risk of developing blood clots. So, preventing blood clots is an important part of in-hospital care. The care may include getting out of bed regularly, taking medicine, or using special therapies or devices. Other factors and conditions may increase the risk of blood clots. Review your risk with your healthcare provider. [id number] [employer]. [address] [place] [address], [place] [address]. All rights reserved. This information is not intended as a substitute for professional medical care. Always follow your healthcare professional's instructions. Additional Information VACCINATE! IT SAVES LIVES! Members of the community who have not yet received the COVID-19 vaccine and would like to receive it can visit one of [facility] vaccine clinics. There are many vaccine clinic locations within the [facility]. For locations and available times, please visit [email or web address]. It is important to note that some COVID mobile vaccine clinics are held outdoors and may be canceled in rainy or stormy conditions. To learn more about pediatric vaccinations (ages 5-11), we invite you to visit the [facility] webpage. [email or web address]/pag [email or web address]-[email or web address].html To learn more about the COVID-19 vaccine, we invite you to visit the [facility] website for a list of frequently asked questions. [email or web address] [email or web address] [facility] Patient Portal Access Instructions: Stay connected with your healthcare team and access your personal medical information anytime with the [facility] Patient Portal. If you would like a full copy of your medical records please contact the [facility] Medical Records Department Friday through Friday between 8a.m. and 4:30p.m. Please follow the directions below to access the portal: 1.Access the email account you provided upon registration to the hospital.2.Look for an invitation email from [facility].3.Open the email and access the invitation link: Accept Invitation to [facility]4.Fill in the required barnes to create your account. Sign into [email or web address] with your username and password that you created in the above steps to stay up to date. You can then view a summary of results, a summary of your visits, and the ability to download your summaries to your computer or send the information securely to a physician. Remember that your healthcare information is confidential, so carefully consider who you will allow to register on the [facility] Patient Portal for access to your information. You can also access the [facility] Patient Portal on the [employer]. Simply click on Health Records under Health Data and then click on the [employer] logo. HOW TO SAFELY DISPOSE OF PRESCRIPTION MEDICATIONS Please use one of the following methods to safely dispose of your unused medications. 1.Use a drug disposal kit: the drug disposal pouch allows you to safely discard your old and unused drugs. Ask your nurse to give you one when you are discharged.2.Visit a local take-back location: Many local pharmacies and police departments have programs that collect old and unwanted prescription drugs. Call your local pharmacy or go to http://Sensentia.[employer]/5V9Qx2a to find one close to you.3.Make use of household items: Use cat litter or old coffee grounds to dispose medications if other options are not available. Mix your drugs with these household products, seal them in an airtight container and throw it into the garbage. Call [facility]: [phone] to be sure your drugs can be disposed of in this way. Some medicines may require a different approach.4.Never flush your medications down the toilet. IF YOU HAVE BEEN PRESCRIBED AN OPIOIDS FOR PAIN If you have been prescribed an opioid (such as hydrocodone, oxycodone or morphine), it is critical to understand the possible side effects and risks of opioid pain medications. Even when taken as directed, opioids can have several side effects including: Tolerance, meaning you might need to take more of a medication for the same pain relief. Nausea, vomiting and/or constipation. Sleepiness, dizziness, dry mouth, confusion, depression or itching. Physical dependence, meaning you have withdrawal symptoms when a medication is stopped ? this can develop within a few days. KNOW YOUR RESPONSIBILITIES It is important to know exactly how much and how often to take the opioid pain medications you are prescribed. Never take opioids in higher amounts or more often than prescribed. Do not combine opioids with alcohol or other drugs that cause drowsiness, such as benzodiazepines, also known as benzos, including diazepam and alprazolam, muscle relaxants or sleep aids. Never sell or share prescription opioids. This is illegal. Store opioids in a secure place and out of reach of others (including children, family, friends and visitors). The last page(s) of this document has been signed and retained as a CHART COPY Signatures Patient Education Materials Understanding Deep Vein Thrombosis Medication Leaflets My discharge plan and instructions have been reviewed and explained to me and I,MYRIAM AMES understand my current condition and have read and understand these discharge instructions. I have received a written copy of the plan/instructions. If I have questions, I am aware that I should contact my doctor. 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 It can affect almost every organ in the body. Smoking puts you and those around you at risk for developing many serious chronic diseases. Quitting smoking can be difficult, but it is one of the best things that you can do for your health. It is never too late to quit. How do I get ready to quit? When you decide to quit smoking, create a plan to help you succeed. Before you quit: Pick a date to quit. Set a date within the next 2 weeks to give you time to prepare. Write down the reasons why you are quitting. Keep this list in places where you will see it often. Tell your family, friends, and co-workers that you are quitting. Support from your loved ones can make quitting easier. Talk with your health care provider about your options for quitting smoking. Find out what treatment options are covered by your health insurance. Identify people, places, things, and activities that make you want to smoke (triggers). Avoid them. What first steps can I take to quit smoking? Throw away all cigarettes at home, at work, and in your car. Throw away smoking accessories, such as ashtrays and lighters. Clean your car. Make sure to empty the ashtray. Clean your home, including curtains and carpets. What strategies can I use to quit smoking? Talk with your health care provider about combining strategies, such as taking medicines while you are also receiving in-person counseling. Using these two strategies together makes you more likely to succeed in quitting than if you used either strategy on its own. If you are or , talk with your health care provider about finding counseling or other support strategies to quit smoking. Do not take medicine to help you quit smoking unless your health care provider tells you to do so. To quit smoking: Quit right away Quit smoking completely, instead of gradually reducing how much you smoke over a period of time. Research shows that stopping smoking right away is more successful than gradually quitting. Attend in-person counseling to help you build problem-solving skills. You are more likely to succeed in quitting if you attend counseling sessions regularly. Even short sessions of 10 minutes can be effective. Take medicine You may take medicines to help you quit smoking. Some medicines require a prescription and some you can purchase [id number]. Medicines may have nicotine in them to replace the nicotine in cigarettes. Medicines may: Help to stop cravings. Help to relieve withdrawal symptoms. Your health care provider may recommend: Nicotine patches, gum, or lozenges. Nicotine inhalers or sprays. Non-nicotine medicine that is taken by mouth. Find resources Find resources and support systems that can help you to quit smoking and remain smoke-free after you quit. These resources are most helpful when you use them often. They include: Online chats with a counselor. Telephone quitlines. Printed self-help materials. Support groups or group counseling. Text messaging programs. Mobile phone apps or applications. Use apps that can help you stick to your quit plan by providing reminders, tips, and encouragement. There are many free apps for mobile devices as well as websites. Examples include Quit Guide from the CDC and smokefree.gov What things can I do to make it easier to quit? Reach out to your family and friends for support and encouragement. Call telephone quitlines (-NOW), reach out to support groups, or work with a counselor for support. Ask people who smoke to avoid smoking around you. Avoid places that trigger you to smoke, such as bars, parties, or smoke-break areas at work. Spend time with people who do not smoke. Lessen the stress in your life. Stress can be a smoking trigger for some people. To lessen stress, try: ?Exercising regularly. ?Doing deep-breathing exercises. ?Doing yoga. ?Meditating. ?Performing a body scan. This involves closing your eyes, scanning your body from head to toe, and noticing which parts of your body are particularly tense. Try to relax the muscles in those areas. How will I feel when I quit smoking? Day 1 to 3 weeks Within the first 24 hours of quitting smoking, you may start to feel withdrawal symptoms. These symptoms are usually most noticeable 2 3 days after quitting, but they usually do not last for more than 2 3 weeks. You may experience these symptoms: Mood swings. Restlessness, anxiety, or irritability. Trouble concentrating. Dizziness. Strong cravings for sugary foods and nicotine. Mild weight gain. Constipation. Nausea. Coughing or a sore throat. Changes in how the medicines that you take for unrelated issues work in your body. Depression. Trouble sleeping (insomnia). Week 3 and afterward After the first 2 3 weeks of quitting, you may start to notice more positive results, such as: Improved sense of smell and taste. Decreased coughing and sore throat. Slower heart rate. Lower blood pressure. Clearer skin. The ability to breathe more easily. Fewer sick days. Quitting smoking can be very challenging. Do not get discouraged if you are not successful the first time. Some people need to make many attempts to quit before they achieve long-term success. Do your best to stick to your quit plan, and talk with your health care provider if you have any questions or concerns. Summary Smoking tobacco is the leading cause of preventable . Quitting smoking is one of the best things that you can do for your health. When you decide to quit smoking, create a plan to help you succeed. Quit smoking right away, not slowly over a period of time. When you start quitting, seek help from your health care provider, family, or friends. This information is not intended to replace advice given to you by your health care provider. Make sure you discuss any questions you have with your health care provider. Document Released: 03/25/2002 Document Revised: 06/18/2019 Document Reviewed: 06/19/2019 [employer] Patient Education 2020 [employer]. 03/22/2022 21:26:23 Deep Vein Thrombosis Deep Vein Thrombosis A deep vein thrombosis (DVT) is a blood clot that develops in the deep, larger veins of the leg, arm, or pelvis. These are more dangerous than clots that might form in veins near the surface of the body. A DVT can lead to complications if the clot breaks off and travels in the bloodstream to the lungs. A DVT can damage the valves in your leg veins, so that instead of flowing upward, the blood pools in the lower leg. This is called post-thrombotic syndrome, and it can result in pain, swelling, discoloration, and sores on the leg. CAUSES Usually, several things contribute to blood clots forming. Contributing factors include: The flow of blood slows down. The inside of the vein is damaged in some way. You have a condition that makes blood clot more easily. RISK FACTORS Some people are more likely than others to develop blood clots. Risk factors include: Older age, especially over 75 years of age. Having a family history of blood clots or if you have already had a blot clot. Having major or lengthy surgery. This is especially true for surgery on the hip, knee, or belly (abdomen). Hip surgery is particularly high risk. Breaking a hip or leg. Sitting or lying still for a long time. This includes long-distance travel, paralysis, or recovery from an illness or surgery. Having cancer or cancer treatment. Having a long, thin tube (catheter) placed inside a vein during a medical procedure. Being overweight (obese). and childbirth. ? Hormone changes make the blood clot more easily during . ? The fetus puts pressure on the veins of the pelvis. ? There is a risk of injury to veins during delivery or a caesarean. The risk is highest just after childbirth. Medicines with the female hormone estrogen. This includes control pills and hormone replacement therapy. Smoking. Other circulation or heart problems. SIGNS AND SYMPTOMS When a clot forms, it can either partially or totally block the blood flow in that vein. Symptoms of a DVT can include: Swelling of the leg or arm, especially if one side is much worse. Warmth and redness of the leg or arm, especially if one side is much worse. Pain in an arm or leg. If the clot is in the leg, symptoms may be more noticeable or worse when standing or walking. The symptoms of a DVT that has traveled to the lungs (pulmonary embolism, PE) usually start suddenly and include: Shortness of breath. Coughing. Coughing up blood or blood-tinged phlegm. Chest pain. The chest pain is often worse with deep breaths. Rapid heartbeat. Anyone with these symptoms should get emergency medical treatment right away. Call your local emergency services (911 in the [place] if you have these symptoms. DIAGNOSIS If a DVT is suspected, your health care provider will take a full medical history and perform a physical exam. Tests that also may be required include: Blood tests, including studies of the clotting properties of the blood. Ultrasonography to see if you have clots in your legs or lungs. X-rays to show the flow of blood when dye is injected into the veins (venography). Studies of your lungs if you have any chest symptoms. PREVENTION Exercise the legs regularly. Take a brisk 30-minute walk every day. Maintain a weight that is appropriate for your height. Avoid sitting or lying in bed for long periods of time without moving your legs. Women, particularly those over the age of 35 years, should consider the risks and benefits of taking estrogen medicines, including control pills. Do not smoke, especially if you take estrogen medicines. Long-distance travel can increase your risk of DVT. You should exercise your legs by walking or pumping the muscles every hour. In-hospital prevention: ? Many of the risk factors above relate to situations that exist with hospitalization, either for illness, injury, or elective surgery. ? Your health care provider will assess you for the need for venous thromboembolism prophylaxis when you are admitted to the hospital. If you are having surgery, your surgeon will assess you the day of or day after surgery. ? Prevention may include medical and nonmedical measures. TREATMENT Once identified, a DVT can be treated. It can also be prevented in some circumstances. Once you have had a DVT, you may be at increased risk for a DVT in the future. The most common treatment for DVT is blood thinning (anticoagulant) medicine, which reduces the blood's tendency to clot. Anticoagulants can stop new blood clots from forming and stop old ones from growing. They cannot dissolve existing clots. Your body does this by itself over time. Anticoagulants can be given by mouth, by IV access, or by injection. Your health care provider will determine the best program for you. Other medicines or treatments that may be used are: Heparin or related medicines (low molecular weight heparin) are usually the first treatment for a blood clot. They act quickly. However, they cannot be taken orally. ? Heparin can cause a fall in a component of blood that stops bleeding and forms blood clots (platelets). You will be monitored with blood tests to be sure this does not occur. Warfarin is an anticoagulant that can be swallowed. It takes a few days to start working, so usually heparin or related medicines are used in combination. Once warfarin is working, heparin is usually stopped. Less commonly, clot dissolving drugs (thrombolytics) are used to dissolve a DVT. They carry a high risk of bleeding, so they are used mainly in severe cases, where your life or a limb is threatened. Very rarely, a blood clot in the leg needs to be removed surgically. If you are unable to take anticoagulants, your health care provider may arrange for you to have a filter placed in a main vein in your abdomen. This filter prevents clots from traveling to your lungs. HOME CARE INSTRUCTIONS Take all medicines prescribed by your health care provider. Only take hnkj-yuc-dpfttrn or prescription medicines for pain, fever, or discomfort as directed by your health care provider. Warfarin. Most people will continue taking warfarin after hospital discharge. Your health care provider will advise you on the length of treatment (usually 3 6 months, sometimes lifelong). ? Too much and too little warfarin are both dangerous. Too much warfarin increases the risk of bleeding. Too little warfarin continues to allow the risk for blood clots. While taking warfarin, you will need to have regular blood tests to measure your blood clotting time. These blood tests usually include both the prothrombin time (PT) and international normalized ratio (INR) tests. The PT and INR results allow your health care provider to adjust your dose of warfarin. The dose can change for many reasons. It is critically important that you take warfarin exactly as prescribed, and that you have your PT and INR levels drawn exactly as directed. ? Many foods, especially foods high in vitamin K, can interfere with warfarin and affect the PT and INR results. Foods high in vitamin K include spinach, kale, broccoli, cabbage, darby and turnip greens, brussel sprouts, peas, cauliflower, seaweed, and parsley as well as beef and pork liver, green tea, and soybean oil. You should eat a consistent amount of foods high in vitamin K. Avoid major changes in your diet, or notify your health care provider before changing your diet. Arrange a visit with a dietitian to answer your questions. ? Many medicines can interfere with warfarin and affect the PT and INR results. You must tell your health care provider about any and all medicines you take. This includes all vitamins and supplements. Be especially cautious with aspirin and anti-inflammatory medicines. Ask your health care provider before taking these. Do not take or discontinue any prescribed or rxvz-fpq-hgceiki medicine except on the advice of your health care provider or pharmacist. ? Warfarin can have side effects, primarily excessive bruising or bleeding. You will need to hold pressure over cuts for longer than usual. Your health care provider or pharmacist will discuss other potential side effects. ? Alcohol can change the body's ability to handle warfarin. It is best to avoid alcoholic drinks or consume only very small amounts while taking warfarin. Notify your health care provider if you change your alcohol intake. ? Notify your dentist or other health care providers before procedures. Activity. Ask your health care provider how soon you can go back to normal activities. It is important to stay active to prevent blood clots. If you are on anticoagulant medicine, avoid contact sports. Exercise. It is very important to exercise. This is especially important while traveling, sitting, or standing for long periods of time. Exercise your legs by walking or by pumping the muscles frequently. Take frequent walks. Compression stockings. These are tight elastic stockings that apply pressure to the lower legs. This pressure can help keep the blood in the legs from clotting. You may need to wear compression stockings at home to help prevent a DVT. Do not smoke. If you smoke, quit. Ask your health care provider for help with quitting smoking. Learn as much as you can about DVT. Knowing more about the condition should help you keep it from coming back. Wear a medical alert bracelet or carry a medical alert card. SEEK MEDICAL CARE IF: You notice a rapid heartbeat. You feel weaker or more tired than usual. You feel faint. You notice increased bruising. You feel your symptoms are not getting better in the time expected. You believe you are having side effects of medicine. SEEK IMMEDIATE MEDICAL CARE IF: You have chest pain. You have trouble breathing. You have new or increased swelling or pain in one leg. You cough up blood. You notice blood in vomit, in a bowel movement, or in urine. MAKE SURE YOU: Understand these instructions. Will watch your condition. Will get help right away if you are not doing well or get worse. Document Released: 03/31/2006 Document Revised: 01/19/2014 Document Reviewed: 12/06/2013 [facility] Patient Information 2015 [employer] [facility]. This information is not intended to replace advice given to you by your health care provider. Make sure you discuss any questions you have with your health care provider. 03/22/2022 21:26:16 Bleeding Precautions When on Anticoagulant Therapy, Adult Bleeding Precautions When on Anticoagulant Therapy, Adult Anticoagulant therapy, also called blood thinner therapy, is medicine that helps to prevent and treat blood clots. The medicine works by stopping blood clots from forming or growing. Blood clots that form in your blood vessels can be dangerous. They can break loose and travel to the heart, lungs, or brain. This increases the risk of a heart attack, stroke, or blocked lung artery (pulmonary embolism). Anticoagulants also increase the risk of bleeding. Try to protect yourself from cuts and other injuries that can cause bleeding. It is important to take anticoagulants exactly as told by your health care provider. Why do I need to be on anticoagulant therapy? You may need this medicine if you are at risk of developing a blood clot. Conditions that increase your risk of a blood clot include: Being born with heart disease or a heart malformation (congenital heart disease). Developing heart disease. Having had surgery, such as valve replacement. Having had a serious accident or other type of severe injury (trauma). Having certain types of cancer. Having certain diseases that can increase blood clotting. Having a high risk of stroke or heart attack. Having atrial fibrillation (AF). What are the common anticoagulant medicines? There are several types of anticoagulant medicines. The most common types are: Medicines that you take by mouth (oral medicines), such as: ?Warfarin. ?Novel oral anticoagulants (NOACs), such as: ?Direct thrombin inhibitors (dabigatran). ?Factor Xa inhibitors (apixaban, edoxaban, and rivaroxaban). Injections, such as: ?Unfractionated heparin. ?Low molecular weight heparin. These anticoagulants work in different ways to prevent blood clots. They also have different risks and side effects. What do I need to remember while on anticoagulant therapy? Taking anticoagulants Take your medicine at the same time every day. If you forget to take your medicine, take it as soon as you remember. Do not double your dosage of medicine if you miss a whole day. Take your normal dose and call your health care provider. Do not stop taking your medicine unless your health care provider approves. Stopping the medicine can increase your risk of developing a blood clot. Taking other medicines Take aunp-bey-nfmcsjz and prescriptions medicines only as told by your health care provider. Do not take gosr-ecs-mhwwqug NSAIDs, including aspirin and ibuprofen, while you are on anticoagulant therapy. These medicines increase your risk of dangerous bleeding. Get approval from your health care provider before you start taking any new medicines, vitamins, or herbal products. Some of these could interfere with your therapy. General instructions Keep all follow-up visits as told by your health care provider. This is important. If you are or trying to get , talk with a health care provider about anticoagulants. Some of these medicines are not safe to take during . Tell all health care providers, including your dentist, that you are on anticoagulant therapy. It is especially important to tell providers before you have any surgery, medical procedures, or dental work done. What precautions should I take? Be very careful when using knives, scissors, or other sharp objects. Use an electric razor instead of a blade. Do not use toothpicks. Use a soft-bristled toothbrush. [place] your teeth gently. Always wear shoes outdoors and wear slippers indoors. Be careful when cutting your fingernails and toenails. Place bath mats in the bathroom. If possible, install handrails as well. Wear gloves while you do yard work. Wear your seat belt. Prevent falls by removing loose rugs and extension cords from areas where you walk. Use a cane or walker if you need it. Avoid constipation by: ?Drinking enough fluid to keep your urine clear or pale yellow. ?Eating foods that are high in fiber, such as fresh fruits and vegetables, whole grains, and beans. ?Limiting foods that are high in fat and processed sugars, such as fried and sweet foods. Do not play contact sports or participate in other activities that have a high risk for injury. What other precautions are important if on warfarin therapy? If you are taking a type of anticoagulant called warfarin, make sure you: Work with a diet and disease education specialist (dietitian) to make an eating plan. Do not make any sudden changes to your diet after you have started your eating plan. Do not drink alcohol. It can interfere with your medicine and increase your risk of an injury that causes bleeding. Get regular blood tests as told by your health care provider. What are some questions to ask my health care provider? Why do I need anticoagulant therapy? What is the best anticoagulant therapy for my condition? How long will I need anticoagulant therapy? What are the side effects of anticoagulant therapy? When should I take my medicine? What should I do if I forget to take it? Will I need to have regular blood tests? Do I need to change my diet? Are there foods or drinks that I should avoid? What activities are safe for me? What should I do if I want to get ? Contact a health care provider if: You miss a dose of medicine: ?And you are not sure what to do. ?For more than one day. You have: ?Menstrual bleeding that is heavier than normal. ?Bloody or brown urine. ?Easy bruising. ?Black and tarry stool or bright red stool. ?Side effects from your medicine. You feel weak or dizzy. You become . Get help right away if: You have bleeding that will not stop within 20 minutes from: ?The nose. ?The gums. ?A cut on the skin. You have a severe headache or stomachache. You vomit or cough up blood. You fall or hit your head. Summary Anticoagulant therapy, also called blood thinner therapy, is medicine that helps to prevent and treat blood clots. Anticoagulants work in different ways to prevent blood clots. They also have different risks and side effects. Talk with your health care provider about any precautions that you should take while on anticoagulant therapy. This information is not intended to replace advice given to you by your health care provider. Make sure you discuss any questions you have with your health care provider. Document Released: 03/11/2016 Document Revised: 07/21/2019 Document Reviewed: 06/17/2017 Elsevier Patient Education 2020 [employer] Follow Up Care 03/19/2022 09:29:04 With:YU BARAJAS MD, [facility], Surgery, Vascular Surgeons Address: [facility] [address] [place] [address] [place] [address] When:Within 3 Month(s) With:Call SELENE New Pt. Refferral [phone] Address:Unknown When:1-2 days With:МАРИЯ MARINELLI MD Address: [address] [place] [address] Hematology [place] [address] [phone] When:Within 3 Week(s) Comments:Hypercoagulability results [facility] 03-22-2022 Note Discharge Instructions Thank you for allowing [facility] to assist you with your healthcare needs. The following is important discharge information regarding your hospital visit. Your Care Team PHYSICIAN, NONE Your Diagnosis PE (pulmonary thromboembolism) DVT (deep venous thrombosis) Iron deficiency Anemia What to do next Instructions From Your Doctor On disposition, you will need compression stockings(20-30mm), follow-up ultrasound in 3 to 6 months, follow-up with vascular. You will need to follow-up with oncology in 3 weeks to go over hypercoagulability results. We recommend follow up with GI physician as your iron levels were low. This may indicate the need for a colonoscopy in the future. Follow Up Appointments Follow Up with YU BARAJAS MD, [facility], Surgery, Vascular Surgeons When In 3 months Where: [facility] [address] [address] Follow Up with Call SELENE New Pt. Refferral [phone] When Within 1-2 days Follow Up with МАРИЯ MARINELLI MD When In 3 weeks Why: Hypercoagulability results Where: [address] [place] [address] [place]ematology [place] [address] [phone] The Following Activity and Diet Have Been Ordered for You Discharge Activity - Ordered -- NO activity restrictions, 03/22/22 16:32:00 EST Discharge Diet - Ordered -- No changes were made to your diet during your hospital stay. Please resume your pre hospitalization diet on discharge., 03/22/22 16:32:00 EST The Following Equipment Has Been Ordered for You No qualifying data available. The Following Treatments Have Been Ordered for You Discharge Labs No qualifying data available. Discharge Radiology No qualifying data available. Other Therapies No qualifying data available. Post Acute Orders No qualifying data available. Someone Will Contact You Regarding These Home Health Referrals No home referrals have been ordered for you. No one will call you. Allergies NKA Medications Please ask your primary doctor or pharmacist before taking any other medication not listed, including over the counter drugs, herbal medications, vitamins and or supplements as they may interact with your home medications. What How Much When Why Instructions Last Dose New acetaminophen-hydrocodone ([place] 325- 5 mg oral tablet) 1 tab(s) by mouth Every 4 hours as needed for Pain, scale 7-10 DVT (deep venous thrombosis) Duration: 3 Days Pickup at [facility] #[id number] New apixaban (apixaban 5 mg oral tablet) [10mg BID x 7days-then 5mg BID] by mouth Two (2) times a day Duration: 30 Days Pickup at [facility] #[id number] New DME (DME [facility]) See instructions PE (pulmonary thromboembolism) 3 pairs. Compression stockings. 20 to 30 mmHg. Mid thigh. Per insurance coverage. Pickup at [facility] #[id number] Pharmacy Information [facility] #[id number]: [address], [place] [id number] [phone] Please take this list to your next doctor s visit. Bring all medications you take, including over the counter medications, herbals and other supplements with you to your doctor s visit. Patients and families are reminded to discard old lists and to update any records with all medication providers or retail pharmacies. Medication Leaflets apixaban (a PIX a ban) Eliquis What is the most important information I should know about apixaban? Apixaban increases your risk of severe or fatal bleeding, especially if you take certain medicines at the same time (including some eysc-trh-ddqmvju medicines). Tell your doctor about all medicines you have recently used. Call your doctor at once if you have signs of bleeding such as: easy bruising, unusual bleeding, unexpected pain or swelling, feeling very weak or dizzy, bleeding gums, nosebleeds, heavy menstrual bleeding, blood in your urine or stools, coughing up blood or vomit that looks like coffee grounds, or any bleeding that will not stop. Apixaban can cause a very serious blood clot around your spinal cord that can lead to long-term or permanent paralysis. This type of blood clot can occur during a spinal tap or spinal anesthesia (epidural), especially if you have a genetic spinal defect, if you use a spinal catheter, if you've had spinal surgery or repeated spinal taps, or if you use other drugs that can affect blood clotting. Get emergency medical help if you have symptoms of a spinal cord blood clot such as tingling, numbness, or muscle weakness especially in your legs and feet. Do not stop taking apixaban unless your doctor tells you to. Stopping suddenly can increase your risk of blood clot or stroke. What is apixaban? Apixaban is used to lower the risk of stroke caused by a blood clot in people with a heart rhythm disorder called atrial fibrillation. Apixaban is also used after hip or knee replacement surgery to prevent a type of blood clot called deep vein thrombosis (DVT), which can lead to blood clots in the lungs (pulmonary embolism). Apixaban is also used to treat DVT or pulmonary embolism (PE), and to lower your risk of having a repeat DVT or PE. Apixaban may also be used for purposes not listed in this medication guide. What should I discuss with my healthcare provider before taking apixaban? You should not take apixaban if you are allergic to it, or if you have active bleeding from a surgery, injury, or other cause. Apixaban may cause you to bleed more easily, especially if you have a bleeding disorder that is inherited or caused by disease. Tell your doctor if you have an artificial heart valve, or if you have ever had: bleeding problems; antiphospholipid syndrome, especially if you have a triple positive antibody test; or liver or kidney disease. Apixaban can cause a very serious blood clot around your spinal cord if you undergo a spinal tap or receive spinal anesthesia (epidural). This type of blood clot could cause long-term paralysis, and may be more likely to occur if: you have a spinal catheter in place or if a catheter has been recently removed; you have a history of spinal surgery or repeated spinal taps; you have recently had a spinal tap or epidural anesthesia; you take aspirin or other NSAIDs (nonsteroidal anti-inflammatory drugs)--ibuprofen (Advil, Motrin), naproxen (Aleve), diclofenac, indomethacin, meloxicam, and others; or you are using other medicines to treat or prevent blood clots. Taking apixaban may increase the risk of bleeding while you are or during your delivery. Tell your doctor if you are or plan to become . Do not breastfeed. How should I take apixaban? Follow all directions on your prescription label and read all medication guides or instruction sheets. Your doctor may occasionally change your dose. Use the medicine exactly as directed. You may take apixaban with or without food. If you cannot swallow a tablet whole, crush it and mix with water, apple juice, or applesauce. Swallow the mixture right away without chewing. A crushed tablet mixture may also be given through a nasogastric (NG) feeding tube. Read and carefully follow any Instructions for Use provided with your medicine. Apixaban can make it easier for you to bleed, even from a minor injury. Seek medical attention if you have bleeding that will not stop. Tell your doctor if you have a planned surgery or dental work. You may need to stop taking apixaban for a short time. Do not stop taking apixaban unless your doctor tells you to. If you stop taking apixaban for any reason, your doctor may prescribe another medicine to prevent blood clots. Store at room temperature away from moisture and heat. What happens if I miss a dose? Take the missed dose on the same day you remember it. Take your next dose at the regular time and stay on your twice-daily schedule. Do not take two doses at one time. Get your prescription refilled before you run out of medicine completely. What happens if I overdose? Seek emergency medical attention or call the Poison Help line at . What should I avoid while taking apixaban? Avoid activities that may increase your risk of bleeding or injury. Use extra care while shaving or brushing your teeth. What are the possible side effects of apixaban? Get emergency medical help if you have signs of an allergic reaction: hives; chest pain, wheezing, difficult breathing; feeling light-headed; swelling of your face, lips, tongue, or throat. Also seek emergency medical attention if you have symptoms of a spinal blood clot such as tingling, numbness, or muscle weakness especially in your legs and feet. Call your doctor at once if you have: easy bruising, unusual bleeding (nose, mouth, vagina, or rectum), bleeding from wounds or needle injections, any bleeding that will not stop; heavy menstrual bleeding; headache, dizziness, weakness, feeling like you might pass out; urine that looks red, pink, or brown; or black or bloody stools, coughing up blood or vomit that looks like coffee grounds. This is not a complete list of side effects and others may occur. Call your doctor for medical advice about side effects. You may report side effects to FDA at 3-453-ULR-2279. What other drugs will affect apixaban? Sometimes it is not safe to use certain medications at the same time. Some drugs can affect your blood levels of other drugs you take, which may increase side effects or make the medications less effective. Many other drugs (including some qamn-jmu-epslryk medicines) can increase your risk of bleeding or blood clots. Tell your doctor about all medicines you have recently used, especially: any other medicines to treat or prevent blood clots; a blood thinner such as heparin or warfarin (Coumadin, Jantoven); an antidepressant; or aspirin or other NSAID (nonsteroidal anti-inflammatory drug) used senior care. This list is not complete and many other drugs may affect apixaban. This includes prescription and fner-eoa-jrqrnih medicines, vitamins, and herbal products. Not all possible drug interactions are listed here. Where can I get more information? Your pharmacist can provide more information about apixaban. Remember, keep this and all other medicines out of the reach of children, never share your medicines with others, and use this medication only for the indication prescribed. Every effort has been made to ensure that the information provided by [employer]. [employer]') is accurate, up-to-date, and complete, but no guarantee is made to that effect. Drug information contained herein may be time sensitive. [employer] information has been compiled for use by healthcare practitioners and consumers in the [place] and therefore [employer] does not warrant that uses outside of the [place] are appropriate, unless specifically indicated otherwise. [employer] drug information does not endorse drugs, diagnose patients or recommend therapy. [employer] drug information is an informational resource designed to assist licensed healthcare practitioners in caring for their patients and/or to serve consumers viewing this service as a supplement to, and not a substitute for, the expertise, skill, knowledge and judgment of healthcare practitioners. The absence of a warning for a given drug or drug combination in no way should be construed to indicate that the drug or drug combination is safe, effective or appropriate for any given patient. [facility] does not assume any responsibility for any aspect of healthcare administered with the aid of information [facility] provides. The information contained herein is not intended to cover all possible uses, directions, precautions, warnings, drug interactions, allergic reactions, or adverse effects. If you have questions about the drugs you are taking, check with your doctor, nurse or pharmacist. Copyright 1320-3412 [employer] [facility]. Version: 6.01. Revision Date: 12/05/2020. Education Materials Steps to Quit Smoking Smoking tobacco is the leading cause of preventable . It can affect almost every organ in the body. Smoking puts you and those around you at risk for developing many serious chronic diseases. Quitting smoking can be difficult, but it is one of the best things that you can do for your health. It is never too late to quit. How do I get ready to quit? When you decide to quit smoking, create a plan to help you succeed. Before you quit: Pick a date to quit. Set a date within the next 2 weeks to give you time to prepare. Write down the reasons why you are quitting. Keep this list in places where you will see it often. Tell your family, friends, and co-workers that you are quitting. Support from your loved ones can make quitting easier. Talk with your health care provider about your options for quitting smoking. Find out what treatment options are covered by your health insurance. Identify people, places, things, and activities that make you want to smoke (triggers). Avoid them. What first steps can I take to quit smoking? Throw away all cigarettes at home, at work, and in your car. Throw away smoking accessories, such as ashtrays and lighters. Clean your car. Make sure to empty the ashtray. Clean your home, including curtains and carpets. What strategies can I use to quit smoking? Talk with your health care provider about combining strategies, such as taking medicines while you are also receiving in-person counseling. Using these two strategies together makes you more likely to succeed in quitting than if you used either strategy on its own. If you are or , talk with your health care provider about finding counseling or other support strategies to quit smoking. Do not take medicine to help you quit smoking unless your health care provider tells you to do so. To quit smoking: Quit right away Quit smoking completely, instead of gradually reducing how much you smoke over a period of time. Research shows that stopping smoking right away is more successful than gradually quitting. Attend in-person counseling to help you build problem-solving skills. You are more likely to succeed in quitting if you attend counseling sessions regularly. Even short sessions of 10 minutes can be effective. Take medicine You may take medicines to help you quit smoking. Some medicines require a prescription and some you can purchase zbmf-djf-khiqjob. Medicines may have nicotine in them to replace the nicotine in cigarettes. Medicines may: Help to stop cravings. Help to relieve withdrawal symptoms. Your health care provider may recommend: Nicotine patches, gum, or lozenges. Nicotine inhalers or sprays. Non-nicotine medicine that is taken by mouth. Find resources Find resources and support systems that can help you to quit smoking and remain smoke-free after you quit. These resources are most helpful when you use them often. They include: Online chats with a counselor. Telephone quitlines. Printed self-help materials. Support groups or group counseling. Text messaging programs. Mobile phone apps or applications. Use apps that can help you stick to your quit plan by providing reminders, tips, and encouragement. There are many free apps for mobile devices as well as websites. Examples include Quit Guide from the CDC and smokefree.gov What things can I do to make it easier to quit? Reach out to your family and friends for support and encouragement. Call telephone quitlines (3-948-MCTK-NOW), reach out to support groups, or work with a counselor for support. Ask people who smoke to avoid smoking around you. Avoid places that trigger you to smoke, such as bars, parties, or smoke-break areas at work. Spend time with people who do not smoke. Lessen the stress in your life. Stress can be a smoking trigger for some people. To lessen stress, try: ? Exercising regularly. ? Doing deep-breathing exercises. ? Doing yoga. ? Meditating. ? Performing a body scan. This involves closing your eyes, scanning your body from head to toe, and noticing which parts of your body are particularly tense. Try to relax the muscles in those areas. How will I feel when I quit smoking? Day 1 to 3 weeks Within the first 24 hours of quitting smoking, you may start to feel withdrawal symptoms. These symptoms are usually most noticeable 2 3 days after quitting, but they usually do not last for more than 2 3 weeks. You may experience these symptoms: Mood swings. Restlessness, anxiety, or irritability. Trouble concentrating. Dizziness. Strong cravings for sugary foods and nicotine. Mild weight gain. Constipation. Nausea. Coughing or a sore throat. Changes in how the medicines that you take for unrelated issues work in your body. Depression. Trouble sleeping (insomnia). Week 3 and afterward After the first 2 3 weeks of quitting, you may start to notice more positive results, such as: Improved sense of smell and taste. Decreased coughing and sore throat. Slower heart rate. Lower blood pressure. Clearer skin. The ability to breathe more easily. Fewer sick days. Quitting smoking can be very challenging. Do not get discouraged if you are not successful the first time. Some people need to make many attempts to quit before they achieve long-term success. Do your best to stick to your quit plan, and talk with your health care provider if you have any questions or concerns. Summary Smoking tobacco is the leading cause of preventable . Quitting smoking is one of the best things that you can do for your health. When you decide to quit smoking, create a plan to help you succeed. Quit smoking right away, not slowly over a period of time. When you start quitting, seek help from your health care provider, family, or friends. This information is not intended to replace advice given to you by your health care provider. Make sure you discuss any questions you have with your health care provider. Document Released: 03/25/2002 Document Revised: 06/18/2019 Document Reviewed: 06/19/2019 [employer] Patient Education 2020 [employer]. Deep Vein Thrombosis A deep vein thrombosis (DVT) is a blood clot that develops in the deep, larger veins of the leg, arm, or pelvis. These are more dangerous than clots that might form in veins near the surface of the body. A DVT can lead to complications if the clot breaks off and travels in the bloodstream to the lungs. A DVT can damage the valves in your leg veins, so that instead of flowing upward, the blood pools in the lower leg. This is called post-thrombotic syndrome, and it can result in pain, swelling, discoloration, and sores on the leg. CAUSES Usually, several things contribute to blood clots forming. Contributing factors include: The flow of blood slows down. The inside of the vein is damaged in some way. You have a condition that makes blood clot more easily. RISK FACTORS Some people are more likely than others to develop blood clots. Risk factors include: Older age, especially over 75 years of age. Having a family history of blood clots or if you have already had a blot clot. Having major or lengthy surgery. This is especially true for surgery on the hip, knee, or belly (abdomen). Hip surgery is particularly high risk. Breaking a hip or leg. Sitting or lying still for a long time. This includes long-distance travel, paralysis, or recovery from an illness or surgery. Having cancer or cancer treatment. Having a long, thin tube (catheter) placed inside a vein during a medical procedure. Being overweight (obese). and childbirth. ? Hormone changes make the blood clot more easily during . ? The fetus puts pressure on the veins of the pelvis. ? There is a risk of injury to veins during delivery or a caesarean. The risk is highest just after childbirth. Medicines with the female hormone estrogen. This includes control pills and hormone replacement therapy. Smoking. Other circulation or heart problems. SIGNS AND SYMPTOMS When a clot forms, it can either partially or totally block the blood flow in that vein. Symptoms of a DVT can include: Swelling of the leg or arm, especially if one side is much worse. Warmth and redness of the leg or arm, especially if one side is much worse. Pain in an arm or leg. If the clot is in the leg, symptoms may be more noticeable or worse when standing or walking. The symptoms of a DVT that has traveled to the lungs (pulmonary embolism, PE) usually start suddenly and include: Shortness of breath. Coughing. Coughing up blood or blood-tinged phlegm. Chest pain. The chest pain is often worse with deep breaths. Rapid heartbeat. Anyone with these symptoms should get emergency medical treatment right away. Call your local emergency services (911 in the [place] if you have these symptoms. DIAGNOSIS If a DVT is suspected, your health care provider will take a full medical history and perform a physical exam. Tests that also may be required include: Blood tests, including studies of the clotting properties of the blood. Ultrasonography to see if you have clots in your legs or lungs. X-rays to show the flow of blood when dye is injected into the veins (venography). Studies of your lungs if you have any chest symptoms. PREVENTION Exercise the legs regularly. Take a brisk 30-minute walk every day. Maintain a weight that is appropriate for your height. Avoid sitting or lying in bed for long periods of time without moving your legs. Women, particularly those over the age of 35 years, should consider the risks and benefits of taking estrogen medicines, including control pills. Do not smoke, especially if you take estrogen medicines. Long-distance travel can increase your risk of DVT. You should exercise your legs by walking or pumping the muscles every hour. In-hospital prevention: ? Many of the risk factors above relate to situations that exist with hospitalization, either for illness, injury, or elective surgery. ? Your health care provider will assess you for the need for venous thromboembolism prophylaxis when you are admitted to the hospital. If you are having surgery, your surgeon will assess you the day of or day after surgery. ? Prevention may include medical and nonmedical measures. TREATMENT Once identified, a DVT can be treated. It can also be prevented in some circumstances. Once you have had a DVT, you may be at increased risk for a DVT in the future. The most common treatment for DVT is blood thinning (anticoagulant) medicine, which reduces the blood's tendency to clot. Anticoagulants can stop new blood clots from forming and stop old ones from growing. They cannot dissolve existing clots. Your body does this by itself over time. Anticoagulants can be given by mouth, by IV access, or by injection. Your health care provider will determine the best program for you. Other medicines or treatments that may be used are: Heparin or related medicines (low molecular weight heparin) are usually the first treatment for a blood clot. They act quickly. However, they cannot be taken orally. ? Heparin can cause a fall in a component of blood that stops bleeding and forms blood clots (platelets). You will be monitored with blood tests to be sure this does not occur. Warfarin is an anticoagulant that can be swallowed. It takes a few days to start working, so usually heparin or related medicines are used in combination. Once warfarin is working, heparin is usually stopped. Less commonly, clot dissolving drugs (thrombolytics) are used to dissolve a DVT. They carry a high risk of bleeding, so they are used mainly in severe cases, where your life or a limb is threatened. Very rarely, a blood clot in the leg needs to be removed surgically. If you are unable to take anticoagulants, your health care provider may arrange for you to have a filter placed in a main vein in your abdomen. This filter prevents clots from traveling to your lungs. HOME CARE INSTRUCTIONS Take all medicines prescribed by your health care provider. Only take gmlx-idf-qqrsvhw or prescription medicines for pain, fever, or discomfort as directed by your health care provider. Warfarin. Most people will continue taking warfarin after hospital discharge. Your health care provider will advise you on the length of treatment (usually 3 6 months, sometimes lifelong). ? Too much and too little warfarin are both dangerous. Too much warfarin increases the risk of bleeding. Too little warfarin continues to allow the risk for blood clots. While taking warfarin, you will need to have regular blood tests to measure your blood clotting time. These blood tests usually include both the prothrombin time (PT) and international normalized ratio (INR) tests. The PT and INR results allow your health care provider to adjust your dose of warfarin. The dose can change for many reasons. It is critically important that you take warfarin exactly as prescribed, and that you have your PT and INR levels drawn exactly as directed. ? Many foods, especially foods high in vitamin K, can interfere with warfarin and affect the PT and INR results. Foods high in vitamin K include spinach, kale, broccoli, cabbage, darby and turnip greens, brussel sprouts, peas, cauliflower, seaweed, and parsley as well as beef and pork liver, green tea, and soybean oil. You should eat a consistent amount of foods high in vitamin K. Avoid major changes in your diet, or notify your health care provider before changing your diet. Arrange a visit with a dietitian to answer your questions. ? Many medicines can interfere with warfarin and affect the PT and INR results. You must tell your health care provider about any and all medicines you take. This includes all vitamins and supplements. Be especially cautious with aspirin and anti-inflammatory medicines. Ask your health care provider before taking these. Do not take or discontinue any prescribed or xzis-ogw-kirpbtr medicine except on the advice of your health care provider or pharmacist. ? Warfarin can have side effects, primarily excessive bruising or bleeding. You will need to hold pressure over cuts for longer than usual. Your health care provider or pharmacist will discuss other potential side effects. ? Alcohol can change the body's ability to handle warfarin. It is best to avoid alcoholic drinks or consume only very small amounts while taking warfarin. Notify your health care provider if you change your alcohol intake. ? Notify your dentist or other health care providers before procedures. Activity. Ask your health care provider how soon you can go back to normal activities. It is important to stay active to prevent blood clots. If you are on anticoagulant medicine, avoid contact sports. Exercise. It is very important to exercise. This is especially important while traveling, sitting, or standing for long periods of time. Exercise your legs by walking or by pumping the muscles frequently. Take frequent walks. Compression stockings. These are tight elastic stockings that apply pressure to the lower legs. This pressure can help keep the blood in the legs from clotting. You may need to wear compression stockings at home to help prevent a DVT. Do not smoke. If you smoke, quit. Ask your health care provider for help with quitting smoking. Learn as much as you can about DVT. Knowing more about the condition should help you keep it from coming back. Wear a medical alert bracelet or carry a medical alert card. SEEK MEDICAL CARE IF: You notice a rapid heartbeat. You feel weaker or more tired than usual. You feel faint. You notice increased bruising. You feel your symptoms are not getting better in the time expected. You believe you are having side effects of medicine. SEEK IMMEDIATE MEDICAL CARE IF: You have chest pain. You have trouble breathing. You have new or increased swelling or pain in one leg. You cough up blood. You notice blood in vomit, in a bowel movement, or in urine. MAKE SURE YOU: Understand these instructions. Will watch your condition. Will get help right away if you are not doing well or get worse. Document Released: 03/31/2006 Document Revised: 01/19/2014 Document Reviewed: 12/06/2013 [employer] Patient Information 2015 [employer]. This information is not intended to replace advice given to you by your health care provider. Make sure you discuss any questions you have with your health care provider. Bleeding Precautions When on Anticoagulant Therapy, Adult Anticoagulant therapy, also called blood thinner therapy, is medicine that helps to prevent and treat blood clots. The medicine works by stopping blood clots from forming or growing. Blood clots that form in your blood vessels can be dangerous. They can break loose and travel to the heart, lungs, or brain. This increases the risk of a heart attack, stroke, or blocked lung artery (pulmonary embolism). Anticoagulants also increase the risk of bleeding. Try to protect yourself from cuts and other injuries that can cause bleeding. It is important to take anticoagulants exactly as told by your health care provider. Why do I need to be on anticoagulant therapy? You may need this medicine if you are at risk of developing a blood clot. Conditions that increase your risk of a blood clot include: Being born with heart disease or a heart malformation (congenital heart disease). Developing heart disease. Having had surgery, such as valve replacement. Having had a serious accident or other type of severe injury (trauma). Having certain types of cancer. Having certain diseases that can increase blood clotting. Having a high risk of stroke or heart attack. Having atrial fibrillation (AF). What are the common anticoagulant medicines? There are several types of anticoagulant medicines. The most common types are: Medicines that you take by mouth (oral medicines), such as: ? Warfarin. ? Novel oral anticoagulants (NOACs), such as: ? Direct thrombin inhibitors (dabigatran). ? Factor Xa inhibitors (apixaban, edoxaban, and rivaroxaban). Injections, such as: ? Unfractionated heparin. ? Low molecular weight heparin. These anticoagulants work in different ways to prevent blood clots. They also have different risks and side effects. What do I need to remember while on anticoagulant therapy? Taking anticoagulants Take your medicine at the same time every day. If you forget to take your medicine, take it as soon as you remember. Do not double your dosage of medicine if you miss a whole day. Take your normal dose and call your health care provider. Do not stop taking your medicine unless your health care provider approves. Stopping the medicine can increase your risk of developing a blood clot. Taking other medicines Take yucl-ccf-sueessm and prescriptions medicines only as told by your health care provider. Do not take pvbg-vly-ddfloeb NSAIDs, including aspirin and ibuprofen, while you are on anticoagulant therapy. These medicines increase your risk of dangerous bleeding. Get approval from your health care provider before you start taking any new medicines, vitamins, or herbal products. Some of these could interfere with your therapy. General instructions Keep all follow-up visits as told by your health care provider. This is important. If you are or trying to get , talk with a health care provider about anticoagulants. Some of these medicines are not safe to take during . Tell all health care providers, including your dentist, that you are on anticoagulant therapy. It is especially important to tell providers before you have any surgery, medical procedures, or dental work done. What precautions should I take? Be very careful when using knives, scissors, or other sharp objects. Use an electric razor instead of a blade. Do not use toothpicks. Use a soft-bristled toothbrush. [place] your teeth gently. Always wear shoes outdoors and wear slippers indoors. Be careful when cutting your fingernails and toenails. Place bath mats in the bathroom. If possible, install handrails as well. Wear gloves while you do yard work. Wear your seat belt. Prevent falls by removing loose rugs and extension cords from areas where you walk. Use a cane or walker if you need it. Avoid constipation by: ? Drinking enough fluid to keep your urine clear or pale yellow. ? Eating foods that are high in fiber, such as fresh fruits and vegetables, whole grains, and beans. ? Limiting foods that are high in fat and processed sugars, such as fried and sweet foods. Do not play contact sports or participate in other activities that have a high risk for injury. What other precautions are important if on warfarin therapy? If you are taking a type of anticoagulant called warfarin, make sure you: Work with a diet and disease education specialist (dietitian) to make an eating plan. Do not make any sudden changes to your diet after you have started your eating plan. Do not drink alcohol. It can interfere with your medicine and increase your risk of an injury that causes bleeding. Get regular blood tests as told by your health care provider. What are some questions to ask my health care provider? Why do I need anticoagulant therapy? What is the best anticoagulant therapy for my condition? How long will I need anticoagulant therapy? What are the side effects of anticoagulant therapy? When should I take my medicine? What should I do if I forget to take it? Will I need to have regular blood tests? Do I need to change my diet? Are there foods or drinks that I should avoid? What activities are safe for me? What should I do if I want to get ? Contact a health care provider if: You miss a dose of medicine: ? And you are not sure what to do. ? For more than one day. You have: ? Menstrual bleeding that is heavier than normal. ? Bloody or brown urine. ? Easy bruising. ? Black and tarry stool or bright red stool. ? Side effects from your medicine. You feel weak or dizzy. You become . Get help right away if: You have bleeding that will not stop within 20 minutes from: ? The nose. ? The gums. ? A cut on the skin. You have a severe headache or stomachache. You vomit or cough up blood. You fall or hit your head. Summary Anticoagulant therapy, also called blood thinner therapy, is medicine that helps to prevent and treat blood clots. Anticoagulants work in different ways to prevent blood clots. They also have different risks and side effects. Talk with your health care provider about any precautions that you should take while on anticoagulant therapy. This information is not intended to replace advice given to you by your health care provider. Make sure you discuss any questions you have with your health care provider. Document Released: 03/11/2016 Document Revised: 07/21/2019 Document Reviewed: 06/17/2017 [employer] Patient Education 2020 [employer]. Additional Information VACCINATE! IT SAVES LIVES! Members of the community who have not yet received the COVID-19 vaccine and would like to receive it can visit one of [facility] vaccine clinics. There are many vaccine clinic locations within the [facility]. For locations and available times, please visit [email or web address].vti o.gov/. It is important to note that some COVID mobile vaccine clinics are held outdoors and may be canceled in rainy or stormy conditions. To learn more about pediatric vaccinations (ages 5-11), we invite you to visit the [facility] webpage. https://www.[email or web address].org/pag es/5205-Fokpo-Uhqtsanjbnj-Frequent na-Uhbko-Tepyrhgxh.html To learn more about the COVID-19 vaccine, we invite you to visit the [employer] website for a list of frequently asked questions. [email or web address]-Wvfzn ently_[email or web address]-Questions.pdf [facility] Patient Portal Access Instructions: Stay connected with your healthcare team and access your personal medical information anytime with the [facility] Patient Portal.If you would like a full copy of your medical records, please contact the [facility] Medical Records Department, Friday through Friday between 8a.m. and 4:30p.m. Please follow the directions below to access the portal: 1.Access the email account you provided upon registration to the [facility].2.Look for an invitation email from [facility].3.Open the email and access the invitation link: Accept Invitation to [facility]4.Fill in the required barnes to create your account. Sign into [email or web address] with your username and password that you created in the above steps to stay up to date. You can then view a summary of results, a summary of your visits, and the ability to download your summaries to your computer or send the information securely to a physician. Remember that your healthcare information is confidential, so carefully consider who you will allow to register on the [facility] Patient Portal for access to your information. You can also access the [facility] Patient Portal on the Donde jose. Simply click on Health Records under Health Data and then click on the [facility] logo. HOW TO SAFELY DISPOSE OF PRESCRIPTION MEDICATIONS Please use one of the following methods to safely dispose of your unused medications. 1.Use a drug disposal kit: the drug disposal pouch allows you to safely discard your old and unused drugs. Ask your nurse to give you one when you are discharged.2.Visit a local take-back location: Many local pharmacies and police departments have programs that collect old and unwanted prescription drugs. Call your local pharmacy or go to http://bit.[employer]/0T0Ou0v to find one close to you.3.Make use of household items: Use cat litter or old coffee grounds to dispose medications if other options are not available. Mix your drugs with these household products, seal them in an airtight container and throw it into the garbage. Call [facility]: [phone] to be sure your drugs can be disposed of in this way. Some medicines may require a different approach.4.Never flush your medications down the toilet. IF YOU HAVE BEEN PRESCRIBED AN OPIOID FOR PAIN If you have been prescribed an opioid (such as hydrocodone, oxycodone or morphine), it is critical to understand the possible side effects and risks of opioid pain medications. Even when taken as directed, opioids can have several side effects including: Tolerance, meaning you might need to take more of a medication for the same pain relief. Nausea, vomiting and/or constipation. Sleepiness, dizziness, dry mouth, confusion, depression or itching. Physical dependence, meaning you have withdrawal symptoms when a medication is stopped, can develop within a few days. KNOW YOUR RESPONSIBILITIES It is important to know exactly how much and how often to take the opioid pain medications you are prescribed. Never take opioids in higher amounts or more often than prescribed. Do not combine opioids with alcohol or other drugs that cause drowsiness, such as benzodiazepines, also known as benzos, including diazepam and alprazolam, muscle relaxants or sleep aids. Never sell or share prescription opioids. This is illegal. Store opioids in a secure place and out of reach of others (including children, family, friends and visitors). The last page of this document has been signed and retained as a CHART COPY. Signatures Patient Education Materials Steps to Quit Smoking Deep Vein Thrombosis Bleeding Precautions When on Anticoagulant Therapy, Adult Medication Leaflets apixaban My discharge plan and instructions have been reviewed and explained to me and I,MYRIAM AMES understand my current condition and have read and understand these discharge instructions. I have received a written copy of the plan/instructions. If I have questions, I am aware that I should contact my doctor. 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 PE (pulmonary thromboembolism) (I26.99 - ICD-10-CM) 2. DVT (deep venous thrombosis) (I82.409 - ICD-10-CM) 3. Iron deficiency (E61.1 - ICD-10-CM) 4. Anemia (D64.9 - ICD-10-CM) Hospital Course 46-year-old male with past medical history of right femur fracture 1 year ago status post surgery and right lower extremity DVT postoperatively at [facility] who had episode of immobilization due to worsening respiratory symptoms last week. He presented to hospital from EMS after syncopal episode. He had associated dyspnea. In the emergency department he was tachycardic in 130s, blood pressure is stable, saturating 95 to 99% on room air. WBCs 12.9, hemoglobin 11.4, coags normal, potassium 3, glucose 139. Troponin and BNP were normal. CTA chest showed bilateral PE with infarct. There is concern for RV strain. Doppler showed extensive DVT in the deep and superficial veins of the right lower extremity. After admission, echocardiogram was obtained that showed an EF of 55 to 60% with normal wall motion. Normal diastolic function. The dyssynergistic septal motion was noted with increased RV pressure at 34 mmHg. Right atrial dilation was noted. Therefore vascular surgery was consulted. Underwent EKOS on 03/21/2022. Since that time vascular has cleared patient to be on oral anticoagulant. Recommend high compression stocking on discharge and follow-up in 3 to 6 months with repeat ultrasound. Pulmonology/oncology was also consulted. They recommend lifelong anticoagulation. Oncology ordered hypercoagulability work-up. They also found iron deficiency for which he will receive 3 doses. He should follow-up in [address] Morgan to go over results. After talking with vascular, they believe patient is safe for discharge this afternoon as he was monitored all day. Therefore patient was discharged after his first dose of Eliquis so that he would have till tomorrow morning to obtain prescription for anticoagulation. Allergies NKA Consults Consult to Physician - Ordered -- 03/19/22 13:56:00 JENN CLARK BRETT A MD, Routine, PE with RV strain, syncope and extensive RLE DVR Consult to Physician - Ordered -- 03/19/22 13:58:00 SHAHBAZ CLARK ADARSH MD, Routine, PE with RV strain, syncope and extensive RLE DVR Consult to Physician - Ordered -- 03/19/22 13:58:00 AMBER, LIDIA MCKEON MD, Routine, PE with RV strain, syncope and extensive RLE DVR Imaging Results and Diagnostics IR Arteriogram Extremity Lower Right Result Date: March 21, 2022 Verified By: CLINICAL STATEMENT: IMPRESSION: CT Angiography Chest w/ Contrast Result Date: March 19, 2022 Verified By: BRONSON TRAYLOR DO CLINICAL STATEMENT: IMPRESSION: Bilateral pulmonary embolism. No pulmonary infarct. Findings suggestive ofright heart strain. Evaluate with echocardiogram. Preliminary report was sent at 11:43 a.m. on 03/19/2022. Final report signedat 12:11 p.m.. Findings were discussed with Dr. JOSE FRANCISCO SAVAGE at 12:11 pm on 03/19/2022. Echo: Summary: 1. Left ventricle: The cavity size is normal. Wall thickness is normal. Systolic function is normal. The estimated ejection fraction is 55-60%. Wall motion is normal; there are no regional wall motion abnormalities. Normal diastolic function. 2. Ventricular septum: Septal motion is dyssynergic. 3. Right ventricle: The cavity size is mildly increased. Systolic function is mildly reduced. The RV systolic pressure by Doppler is 34 mm Hg. 4. Tricuspid valve: There is moderate regurgitation. 5. Right atrium: The atrium is mildly dilated. The estimated right atrial pressure is 3 mm Hg. Objective Vitals and Measurements T: 37.3 C (Oral) TMIN: 36.6 C (Oral) TMAX: 37.6 C (Oral) HR: 97(Monitored) RR: 18 BP: 122/84 SpO2: 95% Weight Dosing Weight: 91.5 kg (03/19/22) Dosing Weight: 91.5 kg (03/19/22) Please see his today's progress note Code Status Code Status - Ordered -- 03/19/22 13:45:00 EST, Full Code, Constant Order Admission Date 03/19/22 Discharge Date 03/22/22 Patient Instructions On disposition, you will need compression stockings(20-30mm), follow-up ultrasound in 3 to 6 months, follow-up with vascular. You will need to follow-up with oncology in 3 weeks to go over hypercoagulability results. We recommend follow up with GI physician as your iron levels were low. This may indicate the need for a colonoscopy in the future. Medications New Prescription acetaminophen-hydrocodone ([place] 325- 5 mg oral tablet)1 tab(s) by mouth every 4 hours as needed Pain, scale 7-10 for 3 Days. Refills: 0. apixaban (apixaban 5 mg oral tablet)[10mg BID x 7days-then 5mg BID] by mouth two (2) times a day for 30 Days. Refills: 0. Follow Up Follow Up with Call AMB New Pt. Refferral [phone] When Within 1-2 days Follow Up with МАРИЯ MARINELLI MD When In 3 weeks Why: Hypercoagulability results Where: [address] [place] [address] [place]ematology [place] [address]- [phone] Follow Up with YU BARAJAS MD, [facility], Surgery, Vascular Surgeons When In 4 weeks Where: [facility] [address] [facility] [address] [place] [address] Follow Up Appointments No qualifying data available. Follow Up Labs/Studies Discharge Labs No Follow-up Labs Discharge Studies No Follow-up Studies Discharge Diet Discharge Diet - Ordered -- No changes were made to your diet during your hospital stay. Please resume your pre hospitalization diet on discharge., 03/22/22 16:32:00 EST Discharge Activity Discharge Activity - Ordered -- NO activity restrictions, 03/22/22 16:32:00 EST Condition on Discharge Stable Readmission Risk/Palliative Score No qualifying data available. Discharge Disposition Home Information Provided To Patient Time Spent >35 minutes with >50% of the time spent counseling patient and/or coordinating care Digitally Signed by SARANYA MORTON DO on 03/22/2022 04:36 PM [facility] 03-22-2022 Note Date of Service 03/22/22 Chief Complaint 46-year-old male with past medical history of right femur fracture 1 year ago status post surgery and right lower extremity DVT postoperatively at [facility] who had episode of immobilization due to worsening respiratory symptoms last week. He presented to hospital from EMS after syncopal episode. He had associated dyspnea. In the emergency department he was tachycardic in 130s, blood pressure is stable, saturating 95 to 99% on room air. WBCs 12.9, hemoglobin 11.4, coags normal, potassium 3, glucose 139. Troponin and BNP were normal. CTA chest showed bilateral PE with infarct. There is concern for RV strain. Doppler showed extensive DVT in the deep and superficial veins of the right lower extremity. After admission, echocardiogram was obtained that showed an EF of 55 to 60% with normal wall motion. Normal diastolic function. The synergistic septal motion was noted with increased RV pressure at 34 mmHg. Right atrial dilation was noted. Therefore vascular surgery was consulted. Underwent EKOS on 03/21/2022. Since that time vascular has cleared patient to be on oral anticoagulant. Recommend high compression stocking on discharge and follow-up in 3 to 6 months with repeat ultrasound. Pulmonology/oncology was also consulted. They recommend lifelong anticoagulation. Oncology ordered hypercoagulability work-up. They also found iron deficiency for which he will receive 3 doses. He should follow-up in [address] Morgan to go over results. Subjective Patient feels well. He believes his swelling has improved significantly. He no longer has any pain in his right lower extremity. He denies any shortness of breath or chest pain. No dizziness. Objective Vitals and Measurements T: 37.4 C (Oral) TMIN: 36.6 C (Oral) TMAX: 37.6 C (Oral) HR: 96(Monitored) RR: 18 BP: 122/90 SpO2: 95% Intake and Output 7AM Yesterday to 7AM Today Intake and Output (Last 24 hours) Intake Administration Information 945.00 Output Urine Voided 4225.00 Total Summary Total Intake 945.00 Total Output 4225.00 Fluid Balance -3280.00 Physical Exam Constitutional - well nourished, alert, no gross deformities Head - atraumatic, normocephalic Eyes - Pupils equal, round, reactive to light, no conjunctival injection, extra ocular movements grossly intact, no scleral icterus Ears, Nose, and Throat - trachea midline no lesions, masses, lymphadenopathy, carotid bruits, or thyroid enlargement Respiratory - Clear to auscultation without rales, rhonchi, wheezing or diminished breath sounds Cardiovascular - regular rate and rhythm without murmurs. Normal S1 and S2. No cyanosis or edema Gastrointestinal (Abdomen) - Bowel sounds present. Soft, nontender without ascites, distention, or aortic bruits Musculoskeletal -right leg and Tobias wrap, gait normal, no obvious deformity, swelling, or clubbing. Skin: Skin normal color, texture and turgor with no lesions or eruptions Weight Dosing Weight: 91.5 kg (03/19/22) Dosing Weight: 91.5 kg (03/19/22) Medications Medications (22) Active Scheduled: (7) benzonatate 100 mg Capsule 200 mg 2 cap(s), Oral, TID guaifenesin 600 mg ER 600 mg 1 tab(s), Oral, BID Misc communication order 1 EA, Miscellaneous, Daily Misc communication order 1 EA, Miscellaneous, Daily Nicoderm patch REMOVAL 1 EA, Miscellaneous, q24h nicotine 21 mg/24 hr ER patch 21 mg 1 patch(es), Transdermal, q24h No metformin for 48 hrs post contrast 1 EA, Miscellaneous, Unscheduled Continuous: (2) heparin 25,000 unit(s) [18 unit(s)/kg/hr] + Dextrose 5% Premix Diluent 250 mL 250 mL, Intravenous, 16.47 mL/hr NS (0.9% nacl) 1,000 mL 1,000 mL, Intravenous, 100 mL/hr PRN: (13) acetaminophen-HYDROcodone 325-5 mg tablet 1 tab(s), Oral, q4h acetaminophen-HYDROcodone 325-5 mg tablet 1 tab(s), Oral, q6h acetaminophen-OXYcodone 325 mg-5 mg Tablet 2 tab(s), Oral, q4h albuterol - ipratropium 2.5 mg-0.5 mg/3 mL Inhal Renate UD 3 mL, Inhalation, q4hRT enalaprilat 1.25 mg/mL (2 mL) vial 1.25 mg 1 mL, IV Push, q6h heparin 5,000 units/mL (1 mL) vial 6,405 unit(s) 1.28 mL, IV Push, q6h heparin 5,000 units/mL (1 mL) vial 3,660 unit(s) 0.73 mL, IV Push, q6h hydralazine 20 mg/mL (1mL) vial 10 mg 0.5 mL, IV Push, q2h hydromorphone 1 mg/mL (1mL) INJ 1 mg 1 mL, IV Push, q1h melatonin 5 mg tablet 10 mg 2 tab(s), Oral, qHS morphine 2 mg/mL 1 mL syringe 1 mg 0.5 mL, IV Push, q1h ondansetron 2 mg/ 1 mL 2 mL INJ 4 mg 2 mL, IV Push, q6h trimethobenzamide 200 mg/2 mL Solution 200 mg 2 mL, Intramuscular, q6h Lab Results 03/22 10:36 Platelet: 236 Protime: 14.4 PT International Ratio: 1.2 03/22 04:21 Hgb: 11.1 L Hct: 35.5 L Platelet: 228 Protime: 14.4 PT International Ratio: 1.2 03/21 22:51 Hgb: 10.6 L Hct: 32.7 L Platelet: 215 Protime: 14.3 PT International Ratio: 1.2 03/21 16:30 Hgb: 10.7 L Hct: 33.3 L Platelet: 225 Protime: 13.6 PT International Ratio: 1.1 03/21 11:03 Hgb: 10.8 L Hct: 34.0 L Platelet: 227 Protime: 13.8 PT International Ratio: 1.2 EKG No qualifying data available. Assessment/Plan 1. Acute PE 2. DVT right lower extremity 3. Anemia -Transition heparin by weight Eliquis today. -Monitor overnight, if patient does well, likely discharge tomorrow morning. On disposition, patient will need compression stockings, follow-up ultrasound in 3 to 6 months, follow-up with vascular. You will need to follow-up with oncology in 3 weeks to go over hypercoagulability results. Time Spent >35 minutes with >50% of the time spent counseling patient and/or coordinating care Digitally Signed by SARANYA MORTON DO on 03/22/2022 02:55 PM [facility] 03-22-2022 Vascular surgery Progress note Date of Service 03/22/2022 Subjective patient is doing well. Leg feels much improved. Decrease edema noted. EKOS is removed and he is on heparin drip now. Objective Vitals and Measurements T: 37.4 C (Oral) TMIN: 36.5 C (Oral) TMAX: 37.6 C (Oral) HR: 84(Monitored) RR: 17 BP: 132/95 SpO2: 96% Intake and Output 7AM Yesterday to 7AM Today Intake and Output (Last 24 hours) Intake Oral Intake 300.00 Administration Information 1960.00 Output Urine Voided 3650.00 Total Summary Total Intake 2260.00 Total Output 3650.00 Fluid Balance -1390.00 Physical Exam Patient is awake alert oriented No apparent distress Afebrile vital signs stable Good pulses right lower extremity Decrease edema right leg Weight Dosing Weight: 91.5 kg (03/19/22) Dosing Weight: 91.5 kg (03/19/22) Medications Medications (26) Active Scheduled: (7) benzonatate 100 mg Capsule 200 mg 2 cap(s), Oral, TID guaifenesin 600 mg ER 600 mg 1 tab(s), Oral, BID Misc communication order 1 EA, Miscellaneous, Daily Misc communication order 1 EA, Miscellaneous, Daily Nicoderm patch REMOVAL 1 EA, Miscellaneous, q24h nicotine 21 mg/24 hr ER patch 21 mg 1 patch(es), Transdermal, q24h No metformin for 48 hrs post contrast 1 EA, Miscellaneous, Unscheduled Continuous: (6) alteplase 20 mg [1 mg/hr] + Sodium Chloride 0.9% 230 mL 230 mL, Intravenous, 12.5 mL/hr heparin 25,000 unit(s) [1000 unit(s)/hr] + Dextrose 5% Premix Diluent 250 mL 250 mL, Intravenous, 10 mL/hr heparin 25,000 unit(s) [18 unit(s)/kg/hr] + Dextrose 5% Premix Diluent 250 mL 250 mL, Intravenous, 16.47 mL/hr NS (0.9% nacl) 1,000 mL 1,000 mL, Intravenous, 100 mL/hr NS (0.9% nacl) 1,000 mL 1,000 mL, Intravenous, 35 mL/hr NS (0.9% nacl) 1,000 mL 1,000 mL, Intravenous, 35 mL/hr PRN: (13) acetaminophen-HYDROcodone 325-5 mg tablet 1 tab(s), Oral, q4h acetaminophen-HYDROcodone 325-5 mg tablet 1 tab(s), Oral, q6h acetaminophen-OXYcodone 325 mg-5 mg Tablet 2 tab(s), Oral, q4h albuterol - ipratropium 2.5 mg-0.5 mg/3 mL Inhal Renate UD 3 mL, Inhalation, q4hRT enalaprilat 1.25 mg/mL (2 mL) vial 1.25 mg 1 mL, IV Push, q6h heparin 5,000 units/mL (1 mL) vial 6,405 unit(s) 1.28 mL, IV Push, q6h heparin 5,000 units/mL (1 mL) vial 3,660 unit(s) 0.73 mL, IV Push, q6h hydralazine 20 mg/mL (1mL) vial 10 mg 0.5 mL, IV Push, q2h hydromorphone 1 mg/mL (1mL) INJ 1 mg 1 mL, IV Push, q1h melatonin 5 mg tablet 10 mg 2 tab(s), Oral, qHS morphine 2 mg/mL 1 mL syringe 1 mg 0.5 mL, IV Push, q1h ondansetron 2 mg/ 1 mL 2 mL INJ 4 mg 2 mL, IV Push, q6h trimethobenzamide 200 mg/2 mL Solution 200 mg 2 mL, Intramuscular, q6h Lab Results 03/22 04:21 Hgb: 11.1 L Hct: 35.5 L Platelet: 228 Protime: 14.4 PT International Ratio: 1.2 03/21 22:51 Hgb: 10.6 L Hct: 32.7 L Platelet: 215 Protime: 14.3 PT International Ratio: 1.2 03/21 16:30 Hgb: 10.7 L Hct: 33.3 L Platelet: 225 Protime: 13.6 PT International Ratio: 1.1 03/21 11:03 Hgb: 10.8 L Hct: 34.0 L Platelet: 227 Protime: 13.8 PT International Ratio: 1.2 EKG No qualifying data available. Assessment/Plan right leg pain 1. DVT. Status post thrombolysis. Continue heparin drip. Okay to change to an oral anticoagulant today. From a vascular standpoint he will need a thigh-high compression stocking on discharge, 20 to 30 mmHg, and he will follow-up with us in 3 to 6 months with a repeat venous ultrasound that I will arrange Orders: .PharmacyCommunication, Start: 03/21/22 11:32:00 EST, Daily, 03/21/22 10:42:00 EST .PharmacyCommunication, Start: 03/21/22 11:32:00 EST, Daily, 03/21/22 10:42:00 EST alteplase 20 mg [1 mg/hr] + Sodium Chloride 0.9% intravenous solution 230 mL, Start: 03/21/22 10:42:00 EST, Rate: 12.5 mL/hr, 03/21/22 10:42:00 EST heparin, Start: 03/22/22 11:03:00 EST, Dose = 3,660 unit(s), = 0.73 mL, IV Push, q6h, PRN, Protocol, Weight Based Heparin, 03/22/22 11:03:00 EST heparin, Start: 03/22/22 11:03:00 EST, Dose = 6,405 unit(s), = 1.28 mL, IV Push, q6h, PRN, Protocol, Weight Based Heparin, 03/22/22 11:03:00 EST heparin 25,000 unit(s) [1000 unit(s)/hr] + Dextrose 5% Premix Diluent 250 mL, Start: 03/21/22 10:42:00 EST, Rate: 10 mL/hr, 03/21/22 10:42:00 EST heparin 25,000 unit(s) [18 unit(s)/kg/hr] + Dextrose 5% Premix Diluent 250 mL, Start: 03/22/22 11:03:00 EST, Rate: 16.47 mL/hr, 03/22/22 11:03:00 EST HYDROmorphone, Start: 03/21/22 10:42:00 EST, Dose = 1 mg, = 1 mL, IV Push, q1h, PRN, Pain, scale 7-10, 0, 03/21/22 10:42:00 EST Ambulate Bedrest Call Parameters Complete Blood Count Heparin/APTT Initiation Heparin/APTT Maintenance Heparin/APTT Maintenance Heparin/APTT Maintenance Heparin/APTT Maintenance Digitally Signed by YU BARAJAS MD on 03/22/2022 11:14 AM [facility] 03-21-2022 Note Date of Service 03/21/2022 Chief Complaint PE Subjective male past history of DVT after having a femoral fracture 1 year ago. Apart from that he has no other health issues that he reports. He presented to the [facility] on 07/18/2021 because of worsening pain and swelling to right lower extremity. So in the emergency department he was tachypneic, tachycardic. CTA done showed bilateral pulmonary embolism. He was started on anticoagulation, seen by vascular surgery who proceeded to do EKOS today. When I saw the patient he had no specific complaints. Objective Vitals and Measurements T: 36.5 C (Oral) TMIN: 36.3 C (Oral) TMAX: 37.1 C (Oral) HR: 77(Monitored) RR: 18 BP: 113/84 SpO2: 96% Intake and Output 7AM Yesterday to 7AM Today Intake and Output (Last 24 hours) Intake Administration Information 1883.45 Oral Intake 500.00 Output Urine Voided 629.00 Total Summary Total Intake 2383.45 Total Output 629.00 Fluid Balance 1754.45 Physical Exam GENERAL: Pt is comfortable in bed. Appears in no acute distress. HEENT: Mucous membranes pink and moist NEURO: Alert and oriented X 3 NECK: Supple, No JVD CVS: S1 & S2 audible, Regular Rate and Rhythm, No Murmurs/Rubs/Gallops CHEST : No accesory muscle use, equal air entry bilaterally, no adventitious breath sounds GI: Normoactive BS, abdomen soft and non tender EXTREMITIES: No distal neurovascular deficits Weight Dosing Weight: 91.5 kg (03/19/22) Dosing Weight: 91.5 kg (03/19/22) Medications Medications (27) Active Scheduled: (8) benzonatate 100 mg Capsule 200 mg 2 cap(s), Oral, TID guaifenesin 600 mg ER 600 mg 1 tab(s), Oral, BID iron sucrose 300 mg 15 mL, IV Piggyback, qDay Misc communication order 1 EA, Miscellaneous, Daily Misc communication order 1 EA, Miscellaneous, Daily Nicoderm patch REMOVAL 1 EA, Miscellaneous, q24h nicotine 21 mg/24 hr ER patch 21 mg 1 patch(es), Transdermal, q24h No metformin for 48 hrs post contrast 1 EA, Miscellaneous, Unscheduled Continuous: (6) alteplase 20 mg [1 mg/hr] + Sodium Chloride 0.9% 230 mL 230 mL, Intravenous, 12.5 mL/hr heparin 25,000 unit(s) [1000 unit(s)/hr] + Dextrose 5% Premix Diluent 250 mL 250 mL, Intravenous, 10 mL/hr heparin 25,000 unit(s) [18 unit(s)/kg/hr] + Dextrose 5% Premix Diluent 250 mL 250 mL, Intravenous, 16.47 mL/hr NS (0.9% nacl) 1,000 mL 1,000 mL, Intravenous, 100 mL/hr NS (0.9% nacl) 1,000 mL 1,000 mL, Intravenous, 35 mL/hr NS (0.9% nacl) 1,000 mL 1,000 mL, Intravenous, 35 mL/hr PRN: (13) acetaminophen-HYDROcodone 325-5 mg tablet 1 tab(s), Oral, q4h acetaminophen-HYDROcodone 325-5 mg tablet 1 tab(s), Oral, q6h acetaminophen-OXYcodone 325 mg-5 mg Tablet 2 tab(s), Oral, q4h albuterol - ipratropium 2.5 mg-0.5 mg/3 mL Inhal Renate UD 3 mL, Inhalation, q4hRT enalaprilat 1.25 mg/mL (2 mL) vial 1.25 mg 1 mL, IV Push, q6h heparin 5,000 units/mL (1 mL) vial 6,405 unit(s) 1.28 mL, IV Push, q6h heparin 5,000 units/mL (1 mL) vial 3,660 unit(s) 0.73 mL, IV Push, q6h hydralazine 20 mg/mL (1mL) vial 10 mg 0.5 mL, IV Push, q2h hydromorphone 1 mg/mL (1mL) INJ 1 mg 1 mL, IV Push, q1h melatonin 5 mg tablet 10 mg 2 tab(s), Oral, qHS morphine 2 mg/mL 1 mL syringe 1 mg 0.5 mL, IV Push, q1h ondansetron 2 mg/ 1 mL 2 mL INJ 4 mg 2 mL, IV Push, q6h trimethobenzamide 200 mg/2 mL Solution 200 mg 2 mL, Intramuscular, q6h Lab Results 03/21 11:03 Hgb: 10.8 L Hct: 34.0 L Platelet: 227 Protime: 13.8 PT International Ratio: 1.2 03/20 05:06 WBC: 11.4 H Hgb: 10.5 L Hct: 33.7 L Platelet: 211 Neutrophil %: 73.2 Glucose Level: 103 Sodium Level: 142 Potassium Level: 4.1 BUN: 13.0 Creatinine Lvl (s): 1.04 Imaging Results and Diagnostics IR Arteriogram Extremity Lower Right Result Date: March 21, 2022 Verified By: CLINICAL STATEMENT: IMPRESSION: CT Angiography Chest w/ Contrast Result Date: March 19, 2022 Verified By: BRONSON TRAYLOR DO CLINICAL STATEMENT: IMPRESSION: Bilateral pulmonary embolism. No pulmonary infarct. Findings suggestive ofright heart strain. Evaluate with echocardiogram. Preliminary report was sent at 11:43 a.m. on 03/19/2022. Final report signedat 12:11 p.m.. Findings were discussed with Dr. JOSE FRANCISCO SAVAGE at 12:11 pm on 03/19/2022. EKG No qualifying data available. Assessment/Plan 1. Acute PE 2. DVT right lower extremity 3. Anemia Plan: Continue heparin by weight, patient had EKOS today. Greatly appreciate vascular surgery's input. Allow diet as tolerated Hematology following for anemia. Taking into consideration his young age he may need hypercoagulable work-up at some point to determine whether or not he needs to be on lifelong anticoagulation. Patient Digitally Signed by PJ GONZALEZ MD on 03/21/2022 04:33 PM [facility] 03-21-2022 Note ORIGINAL Images acquired, not reported on this accession number. [facility] 03-21-2022 Note ORIGINAL Images acquired, not reported on this accession number. [facility] 03-20-2022 Note Date of Service 03/20/22 Chief Complaint SOB, Syncope Subjective Patient was seen and examined, no CP or SOB, no acute events. feel much better. Objective Vitals and Measurements T: 37.1 C (Oral) TMIN: 36.4 C (Oral) TMAX: 37.2 C (Oral) HR: 98(Apical) RR: 18 BP: 128/99 SpO2: 97% Intake and Output 7AM Yesterday to 7AM Today Intake and Output (Last 24 hours) Intake Output Total Summary Total Intake 0.00 Total Output 0.00 Fluid Balance 0.00 Physical Exam Gen: Appears comfortable, not in distress HEENT: PERRLA, EOMI Lungs: CTA, good air entry, no wheezing or crackles CVS: S1-S2 noted, regular rate and rhythm, no murmur noted Abd: Nontender, bowel sounds noted, no organomegaly Ext: Pulses symmegtric, no edema Skin: No rash, no nodules Neuro: Alert, no focal deficits. Weight Dosing Weight: 91.5 kg (03/19/22) Dosing Weight: 91.5 kg (03/19/22) Medications Medications (14) Active Scheduled: (5) benzonatate 100 mg Capsule 200 mg 2 cap(s), Oral, TID guaifenesin 600 mg ER 600 mg 1 tab(s), Oral, BID iron sucrose 300 mg 15 mL, IV Piggyback, qDay Nicoderm patch REMOVAL 1 EA, Miscellaneous, q24h nicotine 21 mg/24 hr ER patch 21 mg 1 patch(es), Transdermal, q24h Continuous: (2) heparin 25,000 unit(s) [18 unit(s)/kg/hr] + Dextrose 5% Premix Diluent 250 mL 250 mL, Intravenous, 16.47 mL/hr NS (0.9% nacl) 1,000 mL 1,000 mL,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 Provider:МАРИЯ MARINELLI MD Location:[facility]M ONC Appointment Type:HEM ONC OV Follow Up [facility] Evaluation + Plan note Future Appointments Appointment Date:12/02/2022 07:00:00 PM Scheduled Provider: Location:[facility] Appointment Type:SL Home Studies Appointment Date:03/25/2023 01:30:00 PM Scheduled Provider:JENNIFER ANTONY DO Location:[facility] Appointment Type:PC Wellness Annual Future Scheduled Tests Laboratory* Troponin I High Sensitivity 09/02/22 * Magnesium Level 09/02/22 * Thyroid Stimulating Hormone 09/02/22 * Complete Blood Count 09/02/22 * Complete Metabolic Panel 09/02/22 [facility] Evaluation + Plan note Future Appointments Appointment Date:03/25/2023 01:30:00 PM Scheduled Provider:JENNIFER ANTONY DO Location:[facility] Appointment Type: Wellness Annual Future Scheduled Tests Laboratory* Antinuclear Antibody Screen, Serum 12/25/22 * Ferritin 12/25/22 * Complete Blood Count 12/25/22 * CRP, High Sensitive 12/25/22 * Iron Studies 12/25/22 * Sedimentation Rate Automated 12/25/22 [facility] Evaluation noteThere may be information available, but it has not been provided by the sender.[facility] Work Phone: Hospital course Narrative No data available for this section [facility] Hospital Discharge instructions No data available for this section [facility] Progress note No data available for this section [facility] Summary Purpose Family History No Family History Records FoundNo Family History Records FoundThere may be information available, but it has not been provided by the sender.There may be information available, but it has not been provided by the sender. No data available for this section No data available for this section No data available for this section No Family History Records Found Advance Directives No Advanced Directives Records FoundNo Advanced Directives Records FoundThere may be information available, but it has not been provided by the sender.There may be information available, but it has not been provided by the sender.No Advanced Directives Records Found History of Present Illness * Enrique Shankar (Rah) - 06/06/2020 5:09 PM EST Subjective HPI HPI Myriam Ames is a 44 year old male who presents today for CC of right flank pain, difficulty urinating. This started 1 week ago. Denies concerns for std. Denies testicular pain .Patient presents with: Urinary Frequency: frequency and right flank pain-also chest hurts some when breathing x 1 week History reviewed. No pertinent past medical history. No past surgical history on file. ALLERGIES Patient has no known allergies. MEDICATIONS No prescriptions on file. No family history on file. Social History Tobacco Use Smoking status: Current Every Day Smoker Smokeless tobacco: Never Used Substance Use Topics Alcohol use: Not on file Drug use: Not on file ROS Objective Blood pressure 110/72, pulse 94, temperature 36.3 C (97.4 F), temperature source Tympanic, resp. rate 18, weight 91.1 kg (200 lb 12.8 oz), SpO2 97 %. Physical Exam Constitutional: He is oriented to person, place, and time. Non-toxic appearance. He does not have asickly appearance. He appears distressed (d/t flank pain). HENT: Head: Normocephalic and atraumatic. Pulmonary/Chest: Effort normal. No accessory muscle usage. No respiratory distress. Abdominal: There is no splenomegaly or hepatomegaly. There is abdominal tenderness in the left upper quadrant. There is CVA tenderness. Neurological: He is alert and oriented to person, place, and time. Skin: He is not diaphoretic. ASSESSMENT/PLAN: 1. Flank pain, acute - ICD9: 789.09, 338.19, ICD10: R10.9 (primary diagnosis) D/t severity of symptoms I recommend ER evaluation/treatment. Will go to [facility] ER via pov. ER passport sent. 2. Urinary frequency - ICD9: 788.41, ICD10: R35.0 Only hematuria noted - UA DIP, URINE (POC) - URINE CULTURE 3. Gross hematuria - ICD9: 599.71, ICD10: R31.0 As above. Enrique Shankar APRN.OPTOELECTRONICS ENGINEER documented in this encounter Assessments Diagnosis Flank pain, acute- Primary Abdominal pain, unspecified site Urinary frequency Gross hematuria Chief Complaint Chief Complaint Description Start Date right leg post I&D with open reduction and intramedullary nailing of right subtrochanteric femur fraction and remocal of traction pin from tibia on 04/25/2021 Preliminary chief co mplaint data, not yet signed by the author as of Chief Complaint Description Start Date right leg post I&D with open reduction and intramedullary nailing of right subtrochanteric femur fraction and remocal of traction pin from tibia on 04/25/2021 Preliminary chief co mplaint data, not yet signed by the author as of Additional Source Comments (unrecognized sect ion and content) No Status Records FoundNo Status Records FoundNo Status Records Found INFORMATION SOURCE (unrecogn ized section and content) DATE CREATED AUTHOR AUTHOR'S ORGANIZ ATION 05/26/2021 [employer] DATE CREATED AUTHOR AUTHOR'S ORGANIZ ATION 03/02/2023 [facility] ([place]) Source Comments (unrecognize d section and content) In the event this informatio n is protected by the Federal Confidentiality of Alcohol and Drug Abuse Patient Records regulations: The Federal rules restrict any use of the information to criminally investigate or prosecute any alcohol or drug abuse patient.[facility] Reason for Visit (unrecogniz ed section and content) Status Reason Specialty Diagnoses / Procedures Referred By Contact Referred To Contact Pending Review OON/Self Pay Override URGENT CARE CLINIC Diagnoses Urgent Care Procedures Urgent Care Enrique Shankar ([employer]) [address] [place] [address] [facility] [address] [place] [address] Reason For Visit Description Start Date Postop - subsequent visit Preliminary reason f or visit data, not yet signed by the author as of right leg post I&D with open reduction and intramedullary nailing of right subtrochanteric femur fraction and remocal of traction pin from tibia on 04/25/2021 Reason For Visit Description Start Date Postop - subsequent visit Preliminary reason f or visit data, not yet signed by the author as of right leg post I&D with open reduction and intramedullary nailing of right subtrochanteric femur fraction and remocal of traction pin from tibia on 04/25/2021 Care Team (unrecognized sect ion and content) Care Team Personnel Name: PHYSICIAN, NONE Position: Physician Member Role: Primary Care Physician Name: SYBIL Nair Position: P3 charging plug placer Member Role: Export Documents Clerk Name: JOSE FRANCISCO SAVAGE DO Position: ED Physician Member Role: ED Physician Address: Address: [facility] [address] [place] [address]- Name: Cristel Ricketts Position: P3 Registration- Hoop Coiling Machine Operator Care Team Related Persons Name: CHAITANYA AMES Address: Home [address], [address] [place] Name: CHAITANYA AMES Address: Home [address], [address] [place] Name: CHAITANYA AMES Care Team Personnel Name: PHYSICIAN, NONE Position: Physician Member Role: Primary Care Physician Name: SYBIL Hansen Position: AO RN Member Role: ED RN Name: TONY PETERS DO Position: Resident Member Role: Resident Address: Address: [address] [facility] [place] [address]- Care Team Related Persons Name: CHAITANYA AMES Address: Home [address], [address] [place] Name: CHAITANYA AMES Name: CHAITANYA AMSE Address: Home [address], [address] [place] Care Team Personnel Name: МАРИЯ MARINELLI MD Position: P4 Oncology Provider Member Role: Rehabilitation Program Manager Address: Address: [address] [place] [address] Hematology and Oncology [place] [id number]- Name: PHYSICIAN, PABLITO Position: Physician Member Role: Primary Care Physician Care Team Related Persons Name: CHAITANYA AMES Name: CHAITANYA AMES Address: Home [address], [address] [place] Name: CHAITANYA AMES Address: Home [address], [address] Care Team Personnel Name: МАРИЯ MARINELLI MD Position: P4 Oncology Provider Member Role: Rehabilitation Program Manager Address: Address: [address] [place] [address] Hematology and Oncology [place] [id number] Name: JENNIFER ANTONY DO Position: P4 Physician - Primary Care Member Role: Primary Care Physician Address: Address: [address] [place] [address] Name: Nitza Richards RN Position: AO RN Member Role: ED RN Name: SUSU WARD DO Position: ED Physician Member Role: ED Physician Address: Address: [facility] [address] [place] [address] Care Team Related Persons Name: CHAITANYA AMES Address: Home [address], [address] [place] Name: CHAITANYA AMES Name: CHAITANYA AMES Address: Home [address], [address] [place] Patient Care team informatio n (unrecognized section and content) Care Team Personnel Name: МАРИЯ MARINELLI MD Position: P4 Oncology Provider Member Role: Rehabilitation Program Manager Address: Address: [address] [place] [address] Hematology and Oncology [place] [id number] Name: JENNIFER ANTONY DO Position: P4 Physician - Primary Care Member Role: Primary Care Physician Address: Address: [address] [place] [address] Name: Penelope Curtis RN Position: AO RN Member Role: ED RN Name: KANCHAN SAWYER MD Position: ED Physician Member Role: Attending Physician Address: Address: [facility] [address] [place] [address] Care Team Related Persons Name: AMESCHAITANYA Name: AMESCHAITANYA Address: Home [address], [address] Name: CHAITANYA AMES Address: Home [address], [address] Care Team Personnel Name: МАРИЯ MARINELLI MD Position: P4 Oncology Provider Member Role: Rehabilitation Program Manager Address: Address: [address] [place] [address] Hematology and Oncology [address] Name: JENNIFER ANTONY DO Position: P4 Physician - Primary Care Member Role: Primary Care Physician Address: Address: [address] [place] [address] Care Team Related Persons Name: CHAITANYA AMES Care Team Personnel Name: МАРИЯ MARINELLI MD Position: P4 Oncology Provider Member Role: Rehabilitation Program Manager Address: Address: [address] [place] [address] Hematology and Oncology [address] Name: JENNIFER ANTONY DO Position: P4 Physician - Primary Care Member Role: Primary Care Physician Address: Address: [address] [place] [address] Name: IRVIN VALLE DO Position: ED Physician Member Role: ED Physician Address: Address: [address] [place] [address] Name: Jacqueline Armendariz RN Position: RN Member Role: ED RN Name: ALVAREZ BARCLAY DO Position: Resident Member Role: Resident Address: Address: [address] [place] [address] ED Resident [address] Care Team Related Persons Name: CHAITANYA AMES FOR RECORDS PERTAINING TO PATIENTS WHO ARE OR HAVE BEEN ENROLLED IN A CHEMICAL DEPENDENCY/SUBSTANCEABUSE PROGRAM, SOME INFORMATION MAY BE OMITTED. This clinical summary was aggregated from multiple sources. Caution should be exercised in using it in the provision of clinical care. This summary normalizes information from multiple sources, and as a consequence, information in this document may materially change the coding, format and clinical context of patient data. In addition, data may be omitted in some cases. CLINICAL DECISIONS SHOULD BE BASED ON THE PRIMARY CLINICAL RECORDS. [facility]. provides no warranty or guarantee of the accuracy or completeness of information in this document.
[2023-04-25 18:02] VITALS: BP 142/100; PULSE 94; RESP 16; O2SAT 99
--- NOTE | 2023-04-25 18:08 | RAD_ITS ---
INDICATION: Injury/Pain EXAMINATION/TECHNIQUE: X-RAY - LEFT XR Shoulder Min 2 Views 2 VIEWS COMPARISON: No relevant prior comparison study available FINDINGS: SOFT TISSUES: No soft tissue swelling or gas. No radiopaque foreign body. BONES/JOINTS: No acute fracture or subluxation.. Normal alignment. Preservation of the joint space.. No sclerotic or destructive changes observed. RAD/Shoulder min 2 Views IMPRESSION: Negative. Electronically Signed: Augusto Neal MD at 18:39 EST ,
== END 2023-04-25 20:38 | disposition home or self-care (01) ==
PROVIDERS: Emergency Provider Emergency Medicine; Visit Provider Emergency Medicine
DX: S09.90XA Unspecified injury of head, initial encounter (principal); S40.012A Contusion of left shoulder, initial encounter; F17.210 Nicotine dependence, cigarettes, uncomplicated; S80.11XA Contusion of right lower leg, initial encounter; V43.52XA Car driver injured in collision with other type car in traffic accident, initial encounter
CPT/HCPCS: 70450; 72125; 73030; 73080; 73590; 96374; 96375; 99284; J7030; A4216; J2405